=== PATIENT | female | born 1960 | race African-American/Black ===

== ENCOUNTER → 2021-08-08 14:34 | Outpatient (CLI) | payer MEDICARE, SELFPAY ==
[2021-08-08 15:50] LABS: Hematocrit 38.6 % (37-47); Hemoglobin 12.1 g/dL (12.0-15.0); Mean Corp Hgb Conc 31.3 g/dL (32-36); Mean Corpuscular Hgb 27.6 pg (27.0-32.0); Mean Corpuscular Volume 88.1 fL (81-99); Platelet Count 376 K/mm3 (150-450); RBC Distribution Width CV 14.1 % (11.6-14.6); RBC Distribution Width SD 45.6 fl (35.1-43.9); Red Blood Count 4.38 M/mm3 (4.2-5.4); White Blood Count 10.4 K/mm3 (4.4-11.0)
[2021-08-08 16:28] LABS: ALB/GLOB Ratio 0.7 RATIO (0.9-2.4); AST(SGOT) 20 U/L (15-37); Alanine Aminotransfer ALT/SGPT 22 U/L (13-56); Albumin, Serum 3.3 g/dL (3.2-5.0); Alkaline Phosphatase 110 U/L (45-117); Anion Gap 3 (5-15); BUN 11 mg/dL (7-18); BUN/Creat Ratio 17.1 RATIO (10-20); Calcium,Total 8.9 mg/dL (8.5-10.1); Chloride 111 mmol/L (98-107); Creatinine, Serum 0.64 mg/dL (0.55-1.02); EST Glomerular Filtration Rate 99 mL/min (>60); Est Glom Filt Rate - Afr Amer 120 mL/min (>60); Glucose 81 mg/dL (74-106); Potassium 3.6 mmol/L (3.5-5.1); Protein, Total 8.3 g/dL (6.4-8.2); Sodium Level 141 mmol/L (136-145)
[2021-08-08 17:33] LABS: Hepatitis B Surface Antigen Non-Reactive (Nonreactive)
[2021-08-09 10:02] LABS: Hepatitis C Antibody REACTIVE (Nonreactive)
== END ==
DX: M05.79 Rheumatoid arthritis with rheumatoid factor of multiple sites without organ or systems involvement (principal); Z02.89 Encounter for other administrative examinations; M17.0 Bilateral primary osteoarthritis of knee; Z79.899 Other long term (current) drug therapy
CPT/HCPCS: 36415; 80053; 85027; 86140; 86480; 86705; 86803; 87340

== ENCOUNTER → 2021-11-01 09:42 | Outpatient (CLI) | payer MEDICARE, SELFPAY ==
[2021-11-02 22:06] LABS: HCV Quant. RNA PCR HCV Not Detected IU/mL (.)
== END ==
DX: R76.8 Other specified abnormal immunological findings in serum (principal)
CPT/HCPCS: 36415; 87522

== ENCOUNTER 2025-03-31 14:55 | Inpatient (IN) | payer MEDICARE, SELFPAY ==
[2025-03-31] VITALS (9 sets, daily range): BP systolic 116–161; BP diastolic 62–96; PULSE 68–98; RESP 12–21; TEMP 36.4–36.9; O2SAT 94–100; BMI 40.1; BMI 43.2
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
--- NOTE | 2025-03-31 15:15 | RAD_ITS ---
PROCEDURE: ANKLE MIN 3 VIEWS 03/31/2025 REASON FOR EXAM: TRAUMA TECHNIQUE: 3 views of the right ankle COMPARISON: None. RAD/Ankle min 3 Views IMPRESSION: On lateral imaging, moderate inferior and posterior calcaneal spurring is seen. A comminuted fracture of the distal right fibula is seen, and at least a entertainment lawyer ior lip (and possibly also medial malleolar) fracture of the distal tibia is seen. Significant lateral dislocation of the t ibiotalar articulation is seen. Lucency of the plantar base of the cuboid bone is also noted, perhaps due to a fracture of uncertain age. Reading Location: [place] [id number]
[2025-03-31] MEDS: Propofol 200 MG/20 ML Vial IV BOLUS (16:06)
[2025-03-31] MEDS: Ondansetron 4 MG/2 ML Vial IV (16:07)
[2025-03-31] MEDS: Morphine 4 MG/ML Syringe IV (16:07)
--- NOTE | 2025-03-31 16:25 | RAD_ITS ---
PROCEDURE: ANKLE MIN 3 VIEWS 03/31/2025 REASON FOR EXAM: REDUCTION TECHNIQUE: 3 views of the right ankle COMPARISON: 03/31/2025 FINDINGS: Interval reduction previously noted moderately displaced distal tibia and fibular fractures. The ankle has been placed in a cast. There is improved and near anatomic alignment. However, there remains persistent mild widening of the ankle mortise. Moderate soft tissue swelling. No radiopaque foreign body. Small plantar calcaneal enthesophyte. Mild degenerative changes of the midfoot. RAD/Ankle min 3 Views IMPRESSION: See above. Reading Location: [place]
[2025-03-31 18:19] LABS: Absolute Lymphocyte Count 1.33 X10^3/uL (0.83-4.51); Absolute Neutrophil Count 6.3 X10^3/uL (2.0-7.7); Basophil# 0.01 X10^3/uL; Basophil% 0.1 % (0-1); Eosinophils% 1.2 % (0-5); Hemoglobin 11.4 g/dL (12.0-15.0); Lymphocyte # 1.33 X10^3/ul (0.83-4.51); Lymphocyte % 15.8 % (19-41); Mean Corp Hgb Conc 30.8 g/dL (32-36); Mean Corpuscular Hgb 27.7 pg (27.0-32.0); Mean Platelet Vol. 9.1 fl (6.2-12.0); Monocyte# 0.65 X10^3/uL; Monocyte% 7.7 % (0-10); NRBC Flagged by Analyzer 0 % (0-5); Neutrophil # 6.32 X10^3/uL (2.7-7.7); Neutrophil % 74.8 % (47-70); Platelet Count 289 K/mm3 (150-450); RBC Distribution Width CV 14.5 % (11.6-14.6); RBC Distribution Width SD 47.4 fl (35.1-43.9); Red Blood Count 4.11 M/mm3 (4.2-5.4); White Blood Count 8.4 K/mm3 (4.4-11.0)
[2025-03-31 18:38] LABS: ALB/GLOB Ratio 0.9 RATIO (0.9-2.4); AST(SGOT) 29 U/L (<=31); Alanine Aminotransfer ALT/SGPT 16 U/L (<=34); Albumin, Serum 3.5 g/dL (3.4-4.8); Alkaline Phosphatase 123 U/L (35-104); Anion Gap 12 (5-15); BUN 15 mg/dL (4-19); BUN/Creat Ratio 16.6 RATIO (10-20); Calcium,Total 9.3 mg/dL (7.6-11.0); Carbon Dioxide 19.9 mmol/L (21.0-32.0); Chloride 107 mmol/L (98-108); Creatinine, Serum 0.92 mg/dL (0.70-1.20); EST Glomerular Filtration Rate 69 (>60); Estimated Creatinine Clearance 85.16 ml/min (50-250); Globulin 3.8 g/dL (2.2-4.2); Glucose 88 mg/dL (70-99); Potassium 4.3 mmol/L (3.3-5.1); Protein, Total 7.3 g/dL (5.9-8.4); Sodium Level 139 mmol/L (133-145); Total Bilirubin 0.29 mg/dL (0.00-1.30)
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
--- NOTE | 2025-03-31 21:45 | CT_ITS ---
PROCEDURE: EXTREMITY LOWER WITHOUT CONTRA 03/31/2025 REASON FOR EXAM: RIGHT ANKLE FRACTURE TECHNIQUE: Axial CT images of the right ankle obtained without intravenous contrast. Coronal and Sagittal reconstruction series were provided. One or more dose reduction techniques were used (e.g., Automated exposure control, adjustment of the mA and/or kV according to patient size, use of iterative reconstruction technique RADIATION DOSE SUMMARY: CTDlvol: 15.4 mGy DLP: 496 mGycm COMPARISON: Right ankle radiographs 03/31/2025 FINDINGS: There are mildly displaced fractures of the medial, lateral, and posterior malleoli. There is widening of the medial ankle mortise suggestive of instability. Corticated calcification near the calcaneocuboid joint may represent sequela of remote injury or degenerative change. There is soft tissue swelling throughout the ankle. Achilles and calcaneal heel spurs. Mild degenerative changes throughout the midfoot. CT/Extremity Lower without Contra IMPRESSION: Mildly displaced trimalleolar fractures. Widening of the medial ankle mortise is concerning for instability. Recommend Orthopedic Surgery consultation if not already performed. Reading Location: [id number]
[2025-03-31] MEDS: Atorvastatin Calcium 40 MG Tablet PO (21:48)
[2025-03-31] MEDS: Senna/Docusate Sodium 1 Tablet 2 TABLET PO (21:49)
[2025-03-31] MEDS: buPROPion (SR) 100 MG TABLET.SA PO (21:49)
[2025-03-31] MEDS: Famotidine 20 MG Tablet PO (21:49)
[2025-03-31] MEDS: MELATONIN 3 MG TABLET PO (21:49)
[2025-03-31] MEDS: cycloBENZAPRine HCl 10 MG Tablet PO (21:49)
[2025-03-31] MEDS: Acetaminophen 325 MG Tablet 650 MG PO (22:29)
[2025-03-31] MEDS: 0.9% Normal Saline (1000mL) 1,000 ML 100 ML IV (23:40)
[2025-04-01] VITALS (16 sets, daily range): BP systolic 118–197; BP diastolic 55–96; PULSE 61–104; RESP 16–18; TEMP 36.1–36.7; O2SAT 88–98; BMI 43.2
[2025-04-01] MEDS: oxyCODONE 5 MG Tablet PO ×2 (00:20→06:49)
[2025-04-01] MEDS: Acetaminophen 325 MG Tablet 650 MG PO ×3 (04:30→13:48)
[2025-04-01] MEDS: 0.9% Saline Lock 10 ML Syringe IV (04:51)
[2025-04-01] MEDS: Morphine 4 MG/ML Syringe IV (04:51)
[2025-04-01] MEDS: Ondansetron 4 MG/2 ML Vial IV (04:51)
[2025-04-01 05:06] LABS: Absolute Lymphocyte Count 2.12 X10^3/uL (0.83-4.51); Absolute Neutrophil Count 7.6 X10^3/uL (2.0-7.7); Basophil# 0.02 X10^3/uL; Basophil% 0.2 % (0-1); Eosinophil# 0.25 X10^3/uL; Eosinophils% 2.3 % (0-5); Hematocrit 32.4 % (37-47); Hemoglobin 10.1 g/dL (12.0-15.0); Lymphocyte # 2.12 X10^3/ul (0.83-4.51); Lymphocyte % 19.3 % (19-41); Mean Corp Hgb Conc 31.2 g/dL (32-36); Mean Corpuscular Hgb 27.7 pg (27.0-32.0); Mean Platelet Vol. 9.4 fl (6.2-12.0); Monocyte# 0.93 X10^3/uL; Monocyte% 8.5 % (0-10); NRBC Flagged by Analyzer 0 % (0-5); Neutrophil # 7.63 X10^3/uL (2.7-7.7); Neutrophil % 69.3 % (47-70); Platelet Count 326 K/mm3 (150-450); RBC Distribution Width CV 14.4 % (11.6-14.6); RBC Distribution Width SD 46.5 fl (35.1-43.9); Red Blood Count 3.64 M/mm3 (4.2-5.4)
[2025-04-01 05:28] LABS: AST(SGOT) 24 U/L (<=31); Alanine Aminotransfer ALT/SGPT 20 U/L (<=34); Albumin, Serum 3.3 g/dL (3.4-4.8); Alkaline Phosphatase 114 U/L (35-104); Anion Gap 11 (5-15); BUN 16 mg/dL (4-19); BUN/Creat Ratio 20.7 RATIO (10-20); Calcium,Total 8.8 mg/dL (7.6-11.0); Carbon Dioxide 22.2 mmol/L (21.0-32.0); Chloride 109 mmol/L (98-108); Creatinine, Serum 0.79 mg/dL (0.70-1.20); EST Glomerular Filtration Rate 82 (>60); Estimated Creatinine Clearance 101.34 ml/min (50-250); Globulin 3.2 g/dL (2.2-4.2); Glucose 95 mg/dL (70-99); Potassium 3.6 mmol/L (3.3-5.1); Protein, Total 6.6 g/dL (5.9-8.4); Sodium Level 141 mmol/L (133-145); Total Bilirubin 0.36 mg/dL (0.00-1.30)
--- NOTE | 2025-04-01 05:55 | EKG12_ITS ---
Test Reason : AM EKG Blood Pressure : */* mmHG Vent. Rate : 89 BPM Atrial Rate : 89 BPM P-R Int : 176 ms QRS Dur : 76 ms QT Int : 388 ms P-R-T Axes : 74 -21 35 degrees QTcB Int : 472 ms Normal sinus rhythm Normal ECG No previous ECGs available Confirmed by FABIEN VILLASENOR, LUIS ([id number]), video editor ABILIO BARR ([id number]) on 04/04/2025 9:46:20 AM Referred By: CLAUDE Confirmed By: LUIS CONN MD
[2025-04-01] MEDS: Famotidine 20 MG Tablet PO (09:44)
[2025-04-01] MEDS: Metoprolol(XL)Succ 25 MG Tablet PO (09:44)
[2025-04-01] MEDS: predniSONE 5 MG Tablet PO (09:44)
[2025-04-01] MEDS: Folic Acid 1 MG Tablet PO (09:45)
[2025-04-01] MEDS: buPROPion (SR) 100 MG TABLET.SA PO (09:45)
--- NOTE | 2025-04-01 10:08 | CASEMGMT ---
BARTOLOME MELLO Assessment: Face to Face with pt for initial transition planning/care coordination assessment. BARTOLOME MELLO introduced self and role at [facility], pt voices understanding and consents to assessment. Pt is A&O x4 and answers all questions appropriately at this time. Pt lying in bed in no distress with at bedside who appears sleeping. Care providers, pharmacy, and demographics verified/updated. Admitting Dx: Fall, R ankle fx Strata Score: 1 PCP:[facility] Specialists:Carlos, rheum; Maury, cardio; Scarcelli, ortho Preferred Pharmacy: [facility] Insurance: [facility] Prescription Benefit: yes LNOK: Jesse Braden, Living Arrangements: Pt lives with , dtr and dtr's fiance in a two story home with 1 step to enter. Pt reports her bed and bath is on the 2nd floor which is 13 steps to go up. Pt reports prior to fall she was I in ADL/IADLs. Transportation: Pt drives self and denies concerns with transportation. DME:toilet riser, crutches, walker HHC/SNF: Pt has had HHC recently but is unsure of the name of the agency. Pt denies SNF stays. Pt states she has concerns returning home with her steps. She is aware that after surgery and therapy BARTOLOME henderson CM or REVA will speak with her regarding dc plan. Pt states no further concerns/needs. CM to follow. Advised pt to ask CM if any further questions/concerns/needs arise, voices understanding. Pt Goal: Home Plan: TBD pending surgery and therapy beatriz Chaves RN, CM
--- NOTE | 2025-04-01 14:56 | PCM.PROGNOTE ---
Subjective Subjective Patient seen and examined. Her was by her bedside. She complained of some pain in her right ankle. She sustained right fibular fracture. She is due for surgery by orthopedic surgery today. She has remained hemodynamically stable. Objective Data Objective Data Vital Signs: Vital Signs Temp Pulse Resp BP Pulse Ox O2 Del Method O2 Flow Rate 98.1 F 96 18 120/58 L 93 Room Air 0 04/01/25 10:00 04/01/25 10:00 04/01/25 10:00 04/01/25 10:00 04/01/25 11:06 04/01/25 13:55 03/31/25 16:28 FiO2 2 03/31/25 16:12 Oxygen Flow Rate (L/min) [4] 2 Oxygen Flow Rate (L/min) [3] 2 Oxygen Flow Rate (L/min) [2] 2 Oxygen Flow Rate (L/min) [1 ( 2 Initial Baseline)] Oxygen Flow Rate (L/min) 0 Oxygen Delivery Method [4] Nasal Cannula Oxygen Delivery Method [3] Nasal Cannula Oxygen Delivery Method [2] Nasal Cannula Oxygen Delivery Method [1 ( Nasal Cannula Initial Baseline)] Oxygen Delivery Method Room Air Weight: 292 lb 8.854 oz Body Mass Index (BMI) 43.2 Intake & Output: Intake and Output for Last 24 Hours 03/30/25 03/31/25 04/01/25 23:59 23:59 23:59 Intake Total 1620 / 1620 Output Total 650 / 650 Balance 970 / 970 Lab / Micro Data 04/01/25 03:50 04/01/25 03:50 Labs: Laboratory Results - last 24 hr 03/31/25 18:05: WBC 8.4, RBC 4.11 L, Hgb 11.4 L, Hct 37.0, MCV 90.0, MCH 27.7, MCHC 30.8 L, RDW Std Deviation 47.4 H, RDW Coeff of Jesica 14.5, Plt Count 289, MPV 9.1, Immature Gran % (Auto) 0.400, Neut % (Auto) 74.8 H, Lymph % (Auto) 15.8 L, [place] % (Auto) 7.7, Eos % (Auto) 1.2, Baso % (Auto) 0.1, Absolute Neuts (auto) 6.3, Absolute Lymphs (auto) 1.33, Nucleated RBC % 0, Sodium 139, Potassium 4.3, Chloride 107, Carbon Dioxide 19.9 L, Anion Gap 12, BUN 15, Creatinine 0.92, Estim Creat Clear Calc 85.16, Est GFR (MDRD) Non-Af 69, BUN/Creatinine Ratio 16.6, Glucose 88, Calcium 9.3, Total Bilirubin 0.29, AST 29, ALT 16, Alkaline Phosphatase 123 H, Total Protein 7.3, Albumin 3.5, Globulin 3.8, Albumin/Globulin Ratio 0.9 04/01/25 03:50: WBC 11.0, RBC 3.64 L, Hgb 10.1 L, Hct 32.4 L, MCV 89.0, MCH 27.7, MCHC 31.2 L, RDW Std Deviation 46.5 H, RDW Coeff of Jesica 14.4, Plt Count 326, MPV 9.4, Immature Gran % (Auto) 0.400, Neut % (Auto) 69.3, Lymph % (Auto) 19.3, [place] % (Auto) 8.5, Eos % (Auto) 2.3, Baso % (Auto) 0.2, Absolute Neuts (auto) 7.6, Absolute Lymphs (auto) 2.12, Nucleated RBC % 0, Sodium 141, Potassium 3.6, Chloride 109 H, Carbon Dioxide 22.2, Anion Gap 11, BUN 16, Creatinine 0.79, Estim Creat Clear Calc 101.34, Est GFR (MDRD) Non-Af 82, BUN/Creatinine Ratio 20.7 H, Glucose 95, Calcium 8.8, Total Bilirubin 0.36, AST 24, ALT 20, Alkaline Phosphatase 114 H, Total Protein 6.6, Albumin 3.3 L, Globulin 3.2, Albumin/Globulin Ratio 1.0 Radiography Diagnostic Testing: Radiology Impression Ankle X-Ray 03/31/25 15:15 IMPRESSION: On lateral imaging, moderate inferior and posterior calcaneal spurring is seen. A comminuted fracture of the distal right fibula is seen, and at least a posterior lip (and possibly also medial malleolar) fracture of the distal tibia is seen. Significant lateral dislocation of the tibiotalar articulation is seen. Lucency of the plantar base of the cuboid bone is also noted, perhaps due to a fracture of uncertain age. Reading Location: [facility] Ankle X-Ray 03/31/25 16:25 IMPRESSION: See above. [facility] 03/31/25 21:45 IMPRESSION: Mildly displaced trimalleolar fractures. Widening of the medial ankle mortise is concerning for instability. Recommend Orthopedic Surgery consultation if not already performed. Reading Location: [facility] Physical Exam Const alert, oriented x3, no apparent distress and well nourished Constitutional Narrative: class III obesity General Appearance: cooperative and well developed HEENT normocephalic, head/scalp atraumatic, moist oral mucous membranes, oropharynx normal and gingiva normal Eyes PERRL and EOMs intact bilaterally Neck no lymphadenopathy and supple Lymph Lymphatic: no lymphadenopathy noted and no lymphedema noted Resp normal respiratory effort, normal air movement and clear to auscultation bilaterally Cardio regular rate, regular rhythm, S1 normal heart sound and S2 normal heart sound GI normal to inspection, nondistended, normoactive bowel sounds, soft to palpation, non-tender and non-distended Extremity Extremity Narrative: RLE in cast General Extremity: no tenderness to palpation of joints or extremities Skin General Skin Exam: no breakdown Neuro CN's II-XII intact bilaterally and no focal motor deficits Motor Exam: general weakness Psych thought process normal, cooperative and affect normal Appearance: appropriate Assessment & Plan Assessment/Plan (1) Ankle fracture, bimalleolar, closed: (2) Fall: PLAN: Plan #Right distal tibial and fibular fracture due to mechanical fall Orthopedic surgery on board. For surgery later today. On p.o. Tylenol, p.o. oxycodone and IV morphine as needed for pain. For surgery later today by orthopedic surgery. #Rheumatoid arthritis: On methotrexate injections monthly. Was on folic acid. On low-dose steroids. #Anxiety and depression: Bupropion #Hypertension: On metoprolol. IV hydralazine. #Hyperlipidemia: On statin #GERD: famotidine #Class III obesity: BMI is 43.2. Complicates acute care, expected recovery and prognosis. DVT prophylaxis: SCDs. Charges/Coding Visit Charges Inpatient E&M: 53887 Subs Hosp L2
[2025-04-01] MEDS: Lactated Ringers 1,000 ML 15 ML IV (16:27)
--- NOTE | 2025-04-01 16:45 | PRE.ANES_ITS ---
ASA Classification* ASA Classification ASA Classification: 3 and E Assessment & Plan Anesthesia* Anesthesia Assessment Anesthesia Assessment: Discussed sedation and/or anesthesia options, risks, benefits, and alternatives with patient/parents/legal guardian/POA. Questions invited. The patient/parents/legal guardian/POA seems to understand and agrees to proceed with anesthesia plan. Reviewed the physical assessment, medical history, allergy history and patient home medications list prior to surgery/procedure/anesthetic and documented any changes. Performed airway and anesthesia risk assessments. Anesthesia Type Anesthesia Type: General Anesthesia Focused Assessment* Temperature: 97.5 F Pulse Rate: 61 Blood Pressure: 118/55 Respiratory Rate: 18 Pulse Ox: 94 Oxygen Flow Rate (L/min): 0 Airway Assessment Mouth opens: >3 cm Mallampati Score: II Focused Labs Anesthesia Preop lab: CBC WBC 11.0 K/mm3 (4.4-11.0) 04/01/25 03:50 04/01/25 RBC 3.64 M/mm3 (4.2-5.4) L 04/01/25 03:50 04/01/25 Hgb 10.1 g/dL (12.0-15.0) L 04/01/25 03:50 5 Hct 32.4 % (37-47) L 04/01/25 03:50 04/01/25 Plt Count 326 K/mm3 (150-450) 04/01/25 03:50 04/01/25 CHEMISTRY Potassium 3.6 mmol/L (3.3-5.1) 04/01/25 03:50 04/01/25 Sodium 141 mmol/L (133-145) 04/01/25 03:50 04/01/25 BUN 16 mg/dL (4-19) 04/01/25 03:50 04/01/25 Creatinine 0.79 mg/dL (0.70-1.20) 04/01/25 03:50 04/01/25 Glucose 95 mg/dL (70-99) 04/01/25 03:50 04/01/25 COAG Pre-Assessment Diagnosis/Proposed Procedure Planned Operative Procedure(s): orif of ankle fx Anesthesia History 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 When Was Last Pacemaker Check QUESTION #4 FULL TEXT: You/Your Family Experience fever (hyperthermia) with Anesthesia Last Oral Intake Last Oral intake: Last Oral Intake NPO since 00:01 04/01/25 15:04 Meds taken in AM with sips of Yes 04/01/25 15:04 water? Meds patient instructed to lopressor, tylenol, folic 04/01/25 15:04 take am of surgery acid, PONV PONV - cad application support specialist: PONV - cad application support specialist Female HX of Motion Sickness HX of N/V After Surgery Non-Smoker Duration of Surgery greater than 60 minutes Number of Risk Factors PONV Score Height & Weight Height & Weight: Anesthesia: Height & Weight Height 5 ft 9 in 04/01/25 15:04 Weight: 132.7 kg 04/01/25 15:04 Body Mass Index (BMI) 43.2 04/01/25 15:04 Respiratory Assessment Respiratory Assessment - cad application support specialist: Respiratory Tract Infection Hx - cad application support specialist Hx Respiratory Tract Infection No 04/01/25 01:24 STOP Sleep Apnea STOP Sleep Apnea - cad application support specialist: STOP Sleep Apnea - cad application support specialist Hx Hypertension Yes 03/31/25 20:49 Hx Sleep Apnea No 03/31/25 20:49 CPAP BIPAP Do you snore loudly (louder No 03/31/25 20:49 than talking or can be heard Do you often feel tired/ No 03/31/25 20:49 fatigued/ sleepy during daytime? Has anyone observed you stop No 03/31/25 20:49 breathing during sleep? STOP Results Negative 03/31/25 20:49 QUESTION #5 FULL TEXT : Do you snore loudly (louder than talking or can be heard through closed doors)? 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 Specify any problems Hx of Preganancy in last 3 No 03/31/25 20:49 Months Nurse Filling Out Transfusion AREAD 03/31/25 20:49 & Questions: Date: 03/31/25 03/31/25 20:49 Time: 20:54 03/31/25 20:49 Patient unable to answer at this time (ie. confused, unrespo /Reproduction History /Reproductive History - cad application support specialist: /Reproductive Hx- cad application support specialist Hx Now No 04/01/25 01:24 Gestational Age (in weeks): EDC: Hx Hx Para Hx Section SAB No 04/01/25 01:24 Active Medications Active Medications: Current Medications Generic Name Dose Route Start Last Admin Trade Name Freq PRN Reason Stop Dose Admin Acetaminophen 650 mg 03/31/25 20:49 04/01/25 13:48 Acetaminophen 325 Mg Tablet PO 650 mg Q4H PRN PRN Administration Fever, pain 1-10/10 Al Hydroxide/Mg Hydroxide 30 ml 03/31/25 20:49 Mag Hydrox/Al Hydrox/Simeth 30 Ml Udc PO Q6H PRN PRN Gastric Burning Albuterol Sulfate 2.5 mg 03/31/25 20:49 Albuterol 2.5 Mg/3 Ml Vial.Neb. INHALATION Q2H PRN PRN Dyspnea, wheezing Atorvastatin Calcium 40 mg 03/31/25 22:00 03/31/25 21:48 Atorvastatin Calcium 40 Mg Tablet PO 40 mg QHS BERNIE Administration Bupropion HCl 100 mg 03/31/25 22:00 04/01/25 09:45 Bupropion (Sr) 100 Mg Tablet.Sa PO 100 mg BID BERNIE Administration Cyclobenzaprine HCl 10 mg 03/31/25 22:00 03/31/25 21:49 Cyclobenzaprine Hcl 10 Mg Tablet PO 10 mg QHS BERNIE Administration Famotidine 20 mg 03/31/25 22:00 04/01/25 09:44 Famotidine 20 Mg Tablet PO 20 mg BID BERNIE Administration Folic Acid 1 mg 04/01/25 08:00 04/01/25 09:45 Folic Acid 1 Mg Tablet PO 1 mg BREAKFAST BERNIE Administration Guaifenesin 20 ml 03/31/25 20:49 Guaifenesin 10 Ml Udc (200mg/10ml) PO Q4H PRN PRN COUGH Hydralazine HCl 10 mg 03/31/25 20:49 Hydralazine 20 Mg/Ml Vial IV Q4H PRN PRN SBP > 160 Protocol Sodium Chloride 250 mls @ 15 mls/hr 03/31/25 21:01 IV .[id number] PRN Additional IVPB Infusion Sodium Chloride 250 mls @ 15 mls/hr 03/31/25 21:01 IV .[id number] PRN Saline Flush Lactated Ringer's 1,000 mls @ 15 mls/hr 04/01/25 16:30 04/01/25 16:27 IV 15 mls/hr .Q48H BERNIE Administration Melatonin 3 mg 03/31/25 22:00 03/31/25 21:49 Melatonin 3 Mg Tablet PO 3 mg QHS BERNIE Administration Metoprolol Succinate 25 mg 04/01/25 10:00 04/01/25 09:44 Metoprolol(Xl)Succ 25 Mg Tablet PO 25 mg DAILY BERNIE Administration Protocol Morphine Sulfate 2 - 4 mg 03/31/25 20:49 04/01/25 04:51 Morphine 4 Mg/Ml Syringe IV 4 mg Q2H PRN PRN Administration MODSEVPAIN Ondansetron HCl 4 mg 03/31/25 20:49 04/01/25 04:51 Ondansetron 4 Mg/2 Ml Vial IV 4 mg Q8H PRN PRN Administration NAUSEA/VOMITING Oxycodone HCl 5 - 10 mg 03/31/25 20:49 04/01/25 06:49 Oxycodone 5 Mg Tablet PO 10 mg Q4H PRN PRN Administration MODSEVPAIN Prednisone 5 mg 04/01/25 08:00 04/01/25 09:44 Prednisone 5 Mg Tablet PO 5 mg DAILY@0800 BERNIE Administration Prochlorperazine Edisylate 5 mg 03/31/25 20:49 Prochlorperazine 10 Mg/2 Ml Vial IV Q4H PRN PRN Breakthrough nausea/vomiting Senna/Docusate Sodium 2 tablet 03/31/25 22:00 04/01/25 10:12 Senna/Docusate Sodium 1 Tablet PO Not Given BID BERNIE Sodium Chloride 10 - 40 ml 03/31/25 21:01 04/01/25 04:51 0.9% Saline Lock 10 Ml Syringe IV 30 ml UD PRN Administration SALINE FLUSH PFSH Medical History Anxiety and depression GERD (gastroesophageal reflux disease) Rheumatoid arthritis Morbid obesity HLD (hyperlipidemia) HTN (hypertension) Home Medications ?Medication ?Instructions ?Recorded ?Last Taken ?Type atorvastatin 40 mg tablet 40 mg PO QHS cholesterol 03/30/25 History bupropion HCl 100 mg tablet,12 hr 100 mg PO BID 03/31/25 History sustained-release calcium 600 mg (as 1 cap PO DAILY 03/31/2503/17 History carbonate)-vitamin D3 5 mcg (200 unit) capsule (Calcium 600 + D(3)) certolizumab pegol 400 mg/2 mL 400 mg subcut .[id number] 03/31/25 Unknown History (200 mg/mL x2) subcutaneous syringe kit (Cimzia) cholecalciferol (vitamin D3) 25 25 mcg PO DAILY 03/31/25 History mcg (1,000 unit) capsule cyclobenzaprine 10 mg tablet 10 mg PO QHS 03/31/25 History famotidine 20 mg tablet 20 mg PO BID 03/31/25 Unknow n History folic acid 1 mg tablet 1 mg PO DAILY 03/31/2503/31 History melatonin 3 mg capsule 3 mg PO DAILY 03/31/2503/30 History methotrexate sodium 2.5 mg tablet 20 mg PO QWEEK 03/31 Unknown History metoprolol succinate 25 mg 25 mg PO DAILY 03/31/25 History tablet,extended release 24 hr prednisone 5 mg tablet 5 mg PO DAILY 03/31/25 Unkno wn History Allergy/AdvReac Type Severity Reaction Status Date / Time No Known Allergies Allergy Verified 03/31/25 14:56 Family History Mother CVA (cerebral vascular accident) Hypertension Father Cancer Surgical History History of left knee replacement Social History household members: spouse Smoking Status: Never smoker alcohol intake: never substance use type: does not use Review of Systems (Anesthesia) ROS Narrative System reviewed and no additional complaints, except as documented.
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
[2025-04-01] MEDS: Cefazolin 3 GM in 0.9% Normal Saline (100mL Bag) 100 ML IV (20:22)
--- NOTE | 2025-04-01 20:30 | RAD_ITS ---
PROCEDURE: ANKLE MIN 3 VIEWS 04/01/2025 REASON FOR EXAM: ORIF ANKLE TECHNIQUE: Fluoroscopy right ankle with 4 spot images FINDINGS: Fluoroscopy time 37.3 seconds Cumulative dose 1.67 mGy Lateral plate and screws distal fibula appear intact and anatomic. 2 cannulated screws medial malleolus appear intact and anatomic. RAD/Ankle min 3 Views IMPRESSION: Fluoroscopy as above. Reading Location: [id number]
--- NOTE | 2025-04-01 21:43 | PCM.OPRPT ---
Operative Report (Standard) Operative Information Date of Procedure: 04/01/25 Pre-Operative Diagnosis: Right ankle trimalleolar ankle fracture Post-Operative Diagnosis: Right ankle trimalleolar ankle fracture Surgery/Procedure Performed: Open reduction internal fixation right trimalleolar ankle fracture medial and lateral malleolus. Stress exam under fluoroscopy right ankle home health clinician: Yes Slide Fasteners Inspector: Herbert Pearl Tasks completed by public services assistant: Opening, Closing, Dissecting tissue, Implanting device, Retracting and Other (Fracture reduction and maintenance of reduction) Additional assistant gm of content & delivery?: No Type of Anesthesia: General RN Documented Start/Stop Times: Operation Date: 04/01/25 17:15 Case Time Into Pre-Op 04/01/25 16:19 Anesthesia Start 04/01/25 20:00 Into Room 04/01/25 20:00 Procedure Start 04/01/25 20:35 Procedure End 04/01/25 21:55 Anesthesia End 04/01/25 22:10 Out of Room 04/01/25 22:10 Into Recovery 04/01/25 22:15 Out of Recovery 04/01/25 23:07 Procedure Start Time: 20:35 Procedure Stop Time: 21:55 Select all DRAINS/GRAFTS/IMPLANTS that apply: Prosthetic device Prosthetic device details: Arthrex 5 hole anatomic distal fibular plate. 2 4.0mm cannulated 50 mm screws medially Special Medications: 3 g Ancef Estimated Blood Loss: 100 mL Fluids Replaced: 1000 mL crystalloid Specimen collected: No Description of surgery: On the day of the procedure patient was seen and evaluated in the preoperative area as noted in her consultation. Right lower extremity was marked in the preoperative area patient was taken back the operating room in stable condition and transferred to table in supine position. Once patient was in supine position anesthesia some neutral C-spine and airway and remained controlled throughout the remainder of the procedure. Once patient was prepped anesthetized all bony prominences identified well-padded bump was placed underneath the right hip. Blankets were placed underneath the right leg. Tourniquet was placed in the right thigh. Splint was taken down and skin was examined. Patient did have skin wrinkles with lateral swelling. No blisters. Leg was prepped in a sterile fashion while surgeon scrubbed. Upon reentering the room the right lower extremity was draped in a standard orthopedic fashion. Timeout was called everyone agreed upon the side, the site, the procedure to be performed, patient's identity and antibiotics given. At this time the leg was exsanguinated using Esmarch bandage tourniquet was placed up to 250 mmHg. Lateral incision was made first. Using made skin incision became abundantly clear we had a venous tourniquet. Based on this tourniquet was let down and proceed with the procedure. Bovie was used to maintain hemostasis. We carefully dissected down to the fracture. Once identified the fracture the wound was copiously irrigated out with normal saline. Pointed reduction clamps were used to reduce the fracture with the help of my assistant gm of content & delivery who pulled traction and rotation on the ankle. Once this was provisionally fixed using a clamp live x-ray was used to verify fracture reduction. 2 lag screws were placed in the leg screw by technique fashion 1 cm apart using 3.5 mm cortical screws. Once this was completed a 5 hole plate was selected and live x-ray was used to verify plate placement. The screw was placed provisionally in the slotted screw screw hole proximally and provisionally fixed in place. Once you are happy with the plate placement 1 additional cortical screw was used to compress the plate down to the plate distally and 4 locking screws were used in the distal anatomic portion of the plate. 2 additional 3.5 mm cortical screws were placed proximally. Lab x-rays to verify plate placement and fracture reduction. Once this was completed our attention was directed medially. Medial skin incision was taken down through skin Bovie cautery was used to help maintain hemostasis superficially. We bluntly dissected down to the fracture. Once identified the fracture we cleaned out the fracture site. Fracture site was yimi irrigate out normal saline. Point reduction clamps were used to reduce the fracture. Using fluoroscopy for guidance we placed 2 K wires distal to proximal across the fracture site. Once we are happy with the placement of these a 50 mm partially-threaded screw and a 48 mm partially-threaded screw were selected. The near cortex was drilled and the cancellous screws were tightened into place. Live fluoroscopy was used to verify they were adequately tightened down to the cortex. K wires were removed. At this point attention was directed towards syndesmosis. We able to directly visualize the syndesmosis through the lateral incision appeared to be intact. Using live fluoroscopy the mortise x-ray was obtained. Once he obtained the initial mortise x-ray we then placed external rotation on the ankle and noted that the mortise did not widen and the talus remained in a stable position under the tibia. Based on this we do not feel patient required further syndesmosis fixation. The wound was copiously irrigated out with normal saline. Deep fascia layers were closed with #1 Vicryl. Skin was closed with 2-0 Vicryl and final skin closure was done with 3-0 nylon sutures. Xeroform dressing was placed. Well-padded sterile compressive dressing was placed. Well-padded splint was placed with the foot in neutral position. Patient was then awakened by anesthesia and transferred to PACU for recovery in stable condition Postop plan: Patient will have the splint removed in 2 weeks and be transition to a boot. She will begin range of motion and stability exercises with physical therapy. Patient will take baby aspirin twice a day for 4 weeks to prevent DVTs. Nonweightbearing for total of 6 weeks with progressive weightbearing based on radiographic and clinical healing after 6 weeks Surgical Findings: Stay well reduced fracture. On stress examination of syndesmosis syndesmosis did not significantly widened and ankle remained stable. Complications Complications: No Admit VTE Documentation VTE Present on Admission: No VTE Mechan Device Prophylaxis: SCD's and Thigh High NESS Hose VTE Pharm Prophylaxis ordered?: Yes
--- NOTE | 2025-04-01 22:24 | PCM.POST.ANE ---
Anesthesia: Postop Eval I Current Vital Signs Temperature: 97.2 F Pulse Rate: 101 Blood Pressure: 197/84 Respiratory Rate: 16 Pulse Ox: 98 Assessment Airway patent: Yes Spontaneous unlabored respirations: Yes nausea: No Vomiting: No Anesthesia Complication: No Fluid Hydration Crystalloid volume administer (ml): 1,000 Total IV fluid infused: 1,000 Progress Note Anesthesia document: Postop Eval 1 completed: Yes
--- NOTE | 2025-04-01 22:25 | PCM.POSTANE2 ---
Anesthesia Postop Eval I Sum Postop Eval Completion status Anesthesia document: Postop Eval 1 completed: Yes Anesthesia Postop Eval I Summary Anesthesia Postop Eval I Summary: Anesthesia Postop Eval I: Assessment Summary Airway patent Yes 04/01/25 22:24 Spontaneous unlabored Yes 04/01/25 22:24 respirations Mental status nausea No 04/01/25 22:24 Vomiting No 04/01/25 22:24 Anesthesia Postop Eval I: Fluid Summary Crystalloid volume administer 1,000 04/01/25 22:24 (ml) Colloids volume administered ( ml) Blood Product volume administered (ml) Total IV fluid infused 1,000 04/01/25 22:24 Anesthesia Postop Eval I: Summary Notes Anesthesia Complication No 04/01/25 22:24 Anesthesia Complication Comment: Post-operative progress note Anesthesia: Postop Eval II Evaluation Mental status: Awake Pain Level: 5 nausea: No Vomiting: No
[2025-04-02] VITALS (9 sets, daily range): BP systolic 119–151; BP diastolic 51–93; PULSE 87–109; RESP 14–18; TEMP 36.3–37.6; O2SAT 92–97; BMI 44.7
[2025-04-02] MEDS: Morphine 4 MG/ML Syringe IV ×4 (01:14→09:30)
--- NOTE | 2025-04-02 03:29 | NURSING ---
This RN taking over care at this time
[2025-04-02] MEDS: Ondansetron 4 MG/2 ML Vial IV (03:39)
[2025-04-02] MEDS: 0.9% Saline Lock 10 ML Syringe IV ×4 (03:39→20:47)
[2025-04-02 06:04] LABS: Absolute Lymphocyte Count 1.52 X10^3/uL (0.83-4.51); Absolute Neutrophil Count 9.5 X10^3/uL (2.0-7.7); Basophil# 0.03 X10^3/uL; Basophil% 0.2 % (0-1); Eosinophil# 0.22 X10^3/uL; Eosinophils% 1.8 % (0-5); Hemoglobin 10.5 g/dL (12.0-15.0); Lymphocyte # 1.52 X10^3/ul (0.83-4.51); Lymphocyte % 12.2 % (19-41); Mean Corpuscular Hgb 27.7 pg (27.0-32.0); Mean Corpuscular Volume 92.3 fL (81-99); Mean Platelet Vol. 9.4 fl (6.2-12.0); Monocyte# 1.17 X10^3/uL; Monocyte% 9.4 % (0-10); NRBC Flagged by Analyzer 0 % (0-5); Neutrophil # 9.47 X10^3/uL (2.7-7.7); Neutrophil % 76.1 % (47-70); Platelet Count 343 K/mm3 (150-450); RBC Distribution Width CV 14.6 % (11.6-14.6); Red Blood Count 3.79 M/mm3 (4.2-5.4); White Blood Count 12.5 K/mm3 (4.4-11.0)
[2025-04-02 06:38] LABS: Anion Gap 10 (5-15); BUN 11 mg/dL (4-19); BUN/Creat Ratio 14.5 RATIO (10-20); Calcium,Total 8.7 mg/dL (7.6-11.0); Chloride 106 mmol/L (98-108); Creatinine, Serum 0.77 mg/dL (0.70-1.20); EST Glomerular Filtration Rate 84 (>60); Estimated Creatinine Clearance 103.44 ml/min (50-250); Glucose 116 mg/dL (70-99); Sodium Level 142 mmol/L (133-145)
[2025-04-02] MEDS: Metoprolol(XL)Succ 25 MG Tablet PO (07:57)
[2025-04-02] MEDS: Acetaminophen 325 MG Tablet 650 MG PO ×2 (07:58→19:50)
[2025-04-02] MEDS: oxyCODONE 5 MG Tablet PO ×3 (07:58→20:47)
[2025-04-02] MEDS: Famotidine 20 MG Tablet PO ×2 (07:58→20:49)
[2025-04-02] MEDS: predniSONE 5 MG Tablet PO (07:58)
[2025-04-02] MEDS: Aspirin 81 MG TAB.CHEW PO ×2 (07:58→16:32)
[2025-04-02] MEDS: Folic Acid 1 MG Tablet PO (07:58)
[2025-04-02] MEDS: buPROPion (SR) 100 MG TABLET.SA PO ×2 (07:59→20:49)
[2025-04-02] MEDS: Senna/Docusate Sodium 1 Tablet 2 TABLET PO ×2 (07:59→20:49)
--- NOTE | 2025-04-02 10:32 | PCM.PROGNOTE ---
Subjective Subjective Patient seen and examined. She is postop day 1 from right lower extremity open reduction internal fixation of the distal tibial and fibula fracture. She complains of pain. She does have a mild fever today at 99.5 Fahrenheit. Heart rate is also a little elevated at 104. Review of systems otherwise negative. Objective Data Objective Data Vital Signs: Vital Signs Temp Pulse Resp BP Pulse Ox O2 Del Method O2 Flow Rate 99.5 F H 104 H 17 141/63 H 94 Room Air 1 04/02/25 08:00 04/02/25 08:00 04/02/25 08:00 04/02/25 08:00 04/02/25 08:00 04/02/25 08:00 04/01/25 23:59 FiO2 2 03/31/25 16:12 Oxygen Flow Rate (L/min) [4] 2 Oxygen Flow Rate (L/min) [3] 2 Oxygen Flow Rate (L/min) [2] 2 Oxygen Flow Rate (L/min) [1 ( 2 Initial Baseline)] Oxygen Flow Rate (L/min) 1 Oxygen Delivery Method [4] Nasal Cannula Oxygen Delivery Method [3] Nasal Cannula Oxygen Delivery Method [2] Nasal Cannula Oxygen Delivery Method [1 ( Nasal Cannula Initial Baseline)] Oxygen Delivery Method Room Air Weight: 303 lb 2.17 oz Body Mass Index (BMI) 44.7 Intake & Output: Intake and Output for Last 24 Hours 03/31/25 04/01/25 04/02/25 23:59 23:59 23:59 Intake Total 1735 / 1735 173.25 / 173.25 Output Total 1000 / 1350 350 / 350 Balance 735 / 385 -176.75 / -176.75 Lab / Micro Data 04/02/25 05:10 04/02/25 05:10 Labs: Laboratory Results - last 24 hr 04/02/25 05:10: WBC 12.5 H, RBC 3.79 L, Hgb 10.5 L, Hct 35.0 L, MCV 92.3, MCH 27.7, MCHC 30.0 L, RDW Std Deviation 49.0 H, RDW Coeff of Jesica 14.6, Plt Count 343, MPV 9.4, Immature Gran % (Auto) 0.300, Neut % (Auto) 76.1 H, Lymph % (Auto) 12.2 L, [place] % (Auto) 9.4, Eos % (Auto) 1.8, Baso % (Auto) 0.2, Absolute Neuts (auto) 9.5 H, Absolute Lymphs (auto) 1.52, Nucleated RBC % 0, Sodium 142, Potassium 4.0, Chloride 106, Carbon Dioxide 26.0, Anion Gap 10, BUN 11, Creatinine 0.77, Estim Creat Clear Calc 103.44, Est GFR (MDRD) Non-Af 84, BUN/Creatinine Ratio 14.5, Glucose 116 H, Calcium 8.7 Radiography Diagnostic Testing: Radiology Impression Ankle X-Ray 04/01/25 20:30 IMPRESSION: Fluoroscopy as above. Reading Location: [facility] Physical Exam Const alert, oriented x3, no apparent distress and well nourished Constitutional Narrative: class III obesity General Appearance: cooperative and well developed HEENT normocephalic, head/scalp atraumatic, moist oral mucous membranes, oropharynx normal and gingiva normal Eyes PERRL and EOMs intact bilaterally Neck no lymphadenopathy and supple Lymph Lymphatic: no lymphadenopathy noted and no lymphedema noted Resp normal respiratory effort, normal air movement and clear to auscultation bilaterally Cardio regular rhythm, S1 normal heart sound and S2 normal heart sound Cardio Narrative: tachycardia GI normal to inspection, nondistended, normoactive bowel sounds, soft to palpation, non-tender and non-distended Extremity Extremity Narrative: RLE in cast General Extremity: no tenderness to palpation of joints or extremities Skin General Skin Exam: no breakdown Neuro CN's II-XII intact bilaterally and no focal motor deficits Motor Exam: general weakness Psych thought process normal, cooperative and affect normal Appearance: appropriate Assessment & Plan Assessment/Plan (1) Ankle fracture, bimalleolar, closed: (2) Fall: PLAN: Plan #Right distal tibial and fibular fracture due to mechanical fall Orthopedic surgery on board. s/p ORIF by orthopedics. Today is POD 1 On p.o. Tylenol, p.o. oxycodone and IV morphine as needed for pain. #Rheumatoid arthritis: On methotrexate injections monthly. Was on folic acid. On low-dose steroids. #Anxiety and depression: Bupropion #Hypertension: On metoprolol. IV hydralazine. #Hyperlipidemia: On statin #GERD: famotidine #Class III obesity: BMI is 43.2. Complicates acute care, expected recovery and prognosis. DVT prophylaxis:will start on eliquis 2.5mg bid Disposition: Disposition will depend on how she does with therapy to see if she can go home possibly with home health but she will need short-term rehab. Charges/Coding Visit Charges Inpatient E&M: 79782 Subs Hosp L2
--- NOTE | 2025-04-02 10:56 | CASEMGMT ---
Noted pt refused therapy today d/t pain and dizziness.
--- NOTE | 2025-04-02 11:37 | CASEMGMT ---
Social Work- SW met with pt to discuss discharge planning. Pt reports that she cannot safely return home due to the 13 steps in the home. Pt reports that her daughter does not want pt to go to SNF, however, pt feels it is the best placement. SW encouraged pt that she is ultimately the decision-maker and offered to assist with conversation with dtr to provide education if desired. SW provided education on placement process. Pt reports that she and dtr will be moving to [place] at the end of summer, as dtr received a position at [employer] and pt feels discharge to SNF will provide the best opportunity to be able to handle that move. Pt will review list with dtr; if any assistance is needed, pt will reach out to . Pt reports that her spouse of 40+ years will also be in this afternoon to review list with her. Pt shared that she has lived with dtr 8 years and spoke extensively about the strong relationship they have. Pt also reported a son out of state and a son who was a security police officer shot in the line of duty 13 years ago. Pt spoke about mild depression following her knee surgery earlier this year and the frustrations regarding not healing as quickly as she anticipated. Pt reports that she is in a healthy mental space currently and reports no feelings of depression regarding inability to return home at this time. SW will remain to follow for SNF choices. SABRINA Alcantara
--- NOTE | 2025-04-02 12:12 | PN.ORTHO_ITS ---
Subjective Subjective Patient is stable with no acute events overnight. Plan for swing bed or some rehab upon discharge. Patient remains comfortable. Continue to ice and elevate. Objective Data Objective Data Vital Signs: Vital Signs Temp Pulse Resp BP Pulse Ox O2 Del Method O2 Flow Rate 99.5 F H 104 H 17 141/63 H 94 Room Air 1 04/02/25 08:00 04/02/25 08:00 04/02/25 08:00 04/02/25 08:00 04/02/25 08:00 04/02/25 08:00 04/01/25 23:59 FiO2 2 03/31/25 16:12 Oxygen Flow Rate (L/min) [4] 2 Oxygen Flow Rate (L/min) [3] 2 Oxygen Flow Rate (L/min) [2] 2 Oxygen Flow Rate (L/min) [1 ( 2 Initial Baseline)] Oxygen Flow Rate (L/min) 1 Oxygen Delivery Method [4] Nasal Cannula Oxygen Delivery Method [3] Nasal Cannula Oxygen Delivery Method [2] Nasal Cannula Oxygen Delivery Method [1 ( Nasal Cannula Initial Baseline)] Oxygen Delivery Method Room Air Weight: 303 lb 2.17 oz Body Mass Index (BMI) 44.7 Intake & Output: Intake and Output for Last 24 Hours 03/31/25 04/01/25 04/02/25 23:59 23:59 23:59 Intake Total 1735 / 1735 173.25 / 173.25 Output Total 1000 / 1350 350 / 350 Balance 735 / 385 -176.75 / -176.75 Lab / Micro Data Attestation: I reviewed the patient's lab results. 04/02/25 05:10 04/02/25 05:10 Labs: Laboratory Results - last 24 hr 04/02/25 05:10: WBC 12.5 H, RBC 3.79 L, Hgb 10.5 L, Hct 35.0 L, MCV 92.3, MCH 27.7, MCHC 30.0 L, RDW Std Deviation 49.0 H, RDW Coeff of Jesica 14.6, Plt Count 343, MPV 9.4, Immature Gran % (Auto) 0.300, Neut % (Auto) 76.1 H, Lymph % (Auto) 12.2 L, [place] % (Auto) 9.4, Eos % (Auto) 1.8, Baso % (Auto) 0.2, Absolute Neuts (auto) 9.5 H, Absolute Lymphs (auto) 1.52, Nucleated RBC % 0, Sodium 142, Potassium 4.0, Chloride 106, Carbon Dioxide 26.0, Anion Gap 10, BUN 11, Creatinine 0.77, Estim Creat Clear Calc 103.44, Est GFR (MDRD) Non-Af 84, BUN/Creatinine Ratio 14.5, Glucose 116 H, Calcium 8.7 Radiography Diagnostic Testing: Radiology Impression Ankle X-Ray 04/01/25 20:30 IMPRESSION: Fluoroscopy as above. Reading Location: [facility] Physical Exam Narrative Right lower extremity: Splint is in place. Splint is clean and dry. Wiggles all toes. Warm digits with brisk cap refill. Sensations intact light touch supers peroneal, deep peroneal and tibial nerve distributions which can be tested with a splint on. Const alert, oriented x3 and no apparent distress Assessment & Plan Assessment/Plan (1) Trimalleolar fracture of right ankle: PLAN: Postop day 1 open reduction term fixation right trimalar ankle fracture medial 1. DVT prophylaxis: Patient was placed on Eliquis 2.5 mg twice daily. Upon discharge to be transition to baby aspirin twice a day. Will leave discretion to primary service upon discharge 2. Pain control: Per primary service currently on Tylenol 3. Therapy: 6-week nonweightbearing right lower extremity. Activity as tolerated would benefit from use of a walker. Therapy to ensure appropriate use and mobility. 4. Elevate right lower extremity above level of heart and ice consistently 5. Disposition: Patient disposition will be dependent on how she is able to therapy and stabilization. Based on age and weightbearing restrictions patient may benefit from inpatient rehabilitation or alf depending on PT OT evaluations. Patient should follow-up in orthopedic office in 2 weeks for x- rays and removal of splint as well as wound examination. DVT prophylaxis as recommended above will defer to primary service for definitive discharge medication, minimum DVT prophylaxis should be 4 weeks of baby aspirin twice a day.
[2025-04-02] MEDS: APIXABAN 2.5 MG TABLET (WCH) PO ×2 (12:13→20:52)
--- NOTE | 2025-04-02 13:19 | NURSING ---
1200-per pt, she was sleeping when therapy rounded and was told they would come back later. she also said her pain was better than this am, 5mg oxycodone given for pain 02/24
[2025-04-02] MEDS: cycloBENZAPRine HCl 10 MG Tablet PO (20:48)
[2025-04-02] MEDS: Atorvastatin Calcium 40 MG Tablet PO (20:48)
[2025-04-02] MEDS: MELATONIN 3 MG TABLET PO (23:01)
[2025-04-03 02:03] VITALS: BP 103/71; PULSE 94; RESP 18; TEMP 36.1; O2SAT 97
[2025-04-03] MEDS: Acetaminophen 325 MG Tablet 650 MG PO ×3 (02:06→21:03)
[2025-04-03] MEDS: oxyCODONE 5 MG Tablet PO ×3 (02:06→21:03)
[2025-04-03 04:38] VITALS: BMI 45.4
[2025-04-03 06:07] LABS: Absolute Lymphocyte Count 1.92 X10^3/uL (0.83-4.51); Absolute Neutrophil Count 6.5 X10^3/uL (2.0-7.7); Basophil# 0.01 X10^3/uL; Basophil% 0.1 % (0-1); Eosinophil# 0.25 X10^3/uL; Eosinophils% 2.5 % (0-5); Hematocrit 30.6 % (37-47); Hemoglobin 9.4 g/dL (12.0-15.0); Lymphocyte # 1.92 X10^3/ul (0.83-4.51); Lymphocyte % 19.6 % (19-41); Mean Corp Hgb Conc 30.7 g/dL (32-36); Mean Corpuscular Hgb 28.3 pg (27.0-32.0); Mean Corpuscular Volume 92.2 fL (81-99); Mean Platelet Vol. 9.2 fl (6.2-12.0); Monocyte# 1.16 X10^3/uL; Monocyte% 11.8 % (0-10); NRBC Flagged by Analyzer 0 % (0-5); Neutrophil # 6.45 X10^3/uL (2.7-7.7); Neutrophil % 65.8 % (47-70); Platelet Count 277 K/mm3 (150-450); RBC Distribution Width CV 14.4 % (11.6-14.6); RBC Distribution Width SD 48.6 fl (35.1-43.9); Red Blood Count 3.32 M/mm3 (4.2-5.4); White Blood Count 9.8 K/mm3 (4.4-11.0)
[2025-04-03 07:07] LABS: Anion Gap 9 (5-15); BUN 10 mg/dL (4-19); BUN/Creat Ratio 14.2 RATIO (10-20); Calcium,Total 8.4 mg/dL (7.6-11.0); Carbon Dioxide 25.4 mmol/L (21.0-32.0); Chloride 104 mmol/L (98-108); EST Glomerular Filtration Rate 95 (>60); Estimated Creatinine Clearance 104.35 ml/min (50-250); Glucose 96 mg/dL (70-99); Potassium 3.7 mmol/L (3.3-5.1); Sodium Level 139 mmol/L (133-145)
[2025-04-03 07:18] VITALS: O2SAT 95
[2025-04-03 08:19] VITALS: BP 125/67; PULSE 89; RESP 16; TEMP 36.7; O2SAT 95
[2025-04-03] MEDS: Aspirin 81 MG TAB.CHEW PO ×2 (08:20→17:18)
[2025-04-03] MEDS: predniSONE 5 MG Tablet PO (08:21)
[2025-04-03] MEDS: Folic Acid 1 MG Tablet PO (08:21)
[2025-04-03] MEDS: APIXABAN 2.5 MG TABLET (WCH) PO ×2 (08:21→21:02)
[2025-04-03] MEDS: Famotidine 20 MG Tablet PO ×2 (08:21→21:02)
[2025-04-03 08:22] VITALS: BP 125/67; PULSE 89
[2025-04-03] MEDS: Senna/Docusate Sodium 1 Tablet 2 TABLET PO ×2 (08:22→21:02)
[2025-04-03] MEDS: Metoprolol(XL)Succ 25 MG Tablet PO (08:22)
[2025-04-03] MEDS: buPROPion (SR) 100 MG TABLET.SA PO ×2 (08:22→21:03)
--- NOTE | 2025-04-03 10:42 | PN_ITS ---
Subjective Subjective Patient seen and examined. Her was by bedside. She had no active complaints. Pain was Well-controlled. Review of systems otherwise negative. She has remained hemodynamically stable. Objective Data Objective Data Vital Signs: Vital Signs Temp Pulse Resp BP Pulse Ox O2 Del Method O2 Flow Rate 98.1 F 89 16 125/67 H 95 Room Air 95 04/03/25 08:19 04/03/25 08:22 04/03/25 08:19 04/03/25 08:22 04/03/25 08:19 04/03/25 08:19 04/02/25 19:52 FiO2 2 03/31/25 16:12 Oxygen Flow Rate (L/min) [4] 2 Oxygen Flow Rate (L/min) [3] 2 Oxygen Flow Rate (L/min) [2] 2 Oxygen Flow Rate (L/min) [1 ( 2 Initial Baseline)] Oxygen Flow Rate (L/min) 95 Oxygen Delivery Method [4] Nasal Cannula Oxygen Delivery Method [3] Nasal Cannula Oxygen Delivery Method [2] Nasal Cannula Oxygen Delivery Method [1 ( Nasal Cannula Initial Baseline)] Oxygen Delivery Method Room Air Weight: 307 lb 12.245 oz Body Mass Index (BMI) 45.4 Intake & Output: Intake and Output for Last 24 Hours 04/01/25 04/02/25 04/03/25 23:59 23:59 23:59 Intake Total 1735 / 1735 573.25 / 573.25 Output Total 1000 / 1350 1450 / 1450 Balance 735 / 385 -876.75 / -876.75 Lab / Micro Data 04/03/25 05:15 04/03/25 05:15 Labs: Laboratory Results - last 24 hr 04/03/25 05:15: WBC 9.8, RBC 3.32 L, Hgb 9.4 L, Hct 30.6 L, MCV 92.2, MCH 28.3, MCHC 30.7 L, RDW Std Deviation 48.6 H, RDW Coeff of Jesica 14.4, Plt Count 277, MPV 9.2, Immature Gran % (Auto) 0.200, Neut % (Auto) 65.8, Lymph % (Auto) 19.6, [place] % (Auto) 11.8 H, Eos % (Auto) 2.5, Baso % (Auto) 0.1, Absolute Neuts (auto) 6.5, Absolute Lymphs (auto) 1.92, Nucleated RBC % 0, Sodium 139, Potassium 3.7, Chloride 104, Carbon Dioxide 25.4, Anion Gap 9, BUN 10, Creatinine 0.70, Estim Creat Clear Calc 104.35, Est GFR (MDRD) Non-Af 95, BUN/Creatinine Ratio 14.2, Glucose 96, Calcium 8.4 Physical Exam Const alert, oriented x3 and no apparent distress Constitutional Narrative: class III obesity General Appearance: cooperative and well developed HEENT normocephalic, head/scalp atraumatic, moist oral mucous membranes, oropharynx normal and gingiva normal Eyes PERRL and EOMs intact bilaterally Neck no lymphadenopathy and supple Lymph Lymphatic: no lymphadenopathy noted and no lymphedema noted Resp normal respiratory effort, normal air movement and clear to auscultation bilaterally Cardio regular rate, regular rhythm, S1 normal heart sound and S2 normal heart sound GI normal to inspection, nondistended, normoactive bowel sounds and soft to palpation Extremity Extremity Narrative: intact dressing over RLE Skin General Skin Exam: no breakdown Wound Narrative: intact dressing over RLE Neuro CN's II-XII intact bilaterally and no focal motor deficits Motor Exam: general weakness Psych thought process normal, cooperative and affect normal Appearance: appropriate Assessment & Plan Assessment/Plan (1) Ankle fracture, bimalleolar, closed: (2) Fall: PLAN: Plan #Right distal tibial and fibular fracture due to mechanical fall * Orthopedic surgery on board. * s/p ORIF by orthopedics. Today is POD 2 * On p.o. Tylenol, p.o. oxycodone and IV morphine as needed for pain. * #Rheumatoid arthritis: On methotrexate injections monthly. Was on folic acid. On low-dose steroids. #Anxiety and depression: Bupropion #Hypertension: On metoprolol. IV hydralazine. #Hyperlipidemia: On statin #GERD: famotidine #Class III obesity: BMI is 43.2. Complicates acute care, expected recovery and prognosis. DVT prophylaxis: * On Eliquis 2.5 mg twice daily. * Per orthopedics to be discharged on 4 weeks of aspirin 81 mg twice daily we will leave discretion for selection of DVT prophylaxis to primary team. Disposition: Awaiting placement in SNF. Charges/Coding Visit Charges Inpatient E&M: 10113 Subs Hosp L2
[2025-04-03 14:25] VITALS: BP 127/47; PULSE 87; RESP 14; TEMP 36.9; O2SAT 97
[2025-04-03] MEDS: cycloBENZAPRine HCl 10 MG Tablet PO (21:02)
[2025-04-03] MEDS: MELATONIN 3 MG TABLET PO (21:02)
[2025-04-03] MEDS: Atorvastatin Calcium 40 MG Tablet PO (21:02)
[2025-04-03] MEDS: 0.9% Saline Lock 10 ML Syringe IV (21:09)
[2025-04-03 21:12] VITALS: BP 144/69; PULSE 95; RESP 20; TEMP 37.1; O2SAT 95
[2025-04-04 05:14] VITALS: BP 119/52; PULSE 93; RESP 18; TEMP 37.1; O2SAT 95
[2025-04-04 05:34] VITALS: BMI 45.1
[2025-04-04 06:17] LABS: Absolute Lymphocyte Count 1.86 X10^3/uL (0.83-4.51); Basophil# 0.01 X10^3/uL; Basophil% 0.1 % (0-1); Eosinophils% 4.3 % (0-5); Hematocrit 29.1 % (37-47); Hemoglobin 9.2 g/dL (12.0-15.0); Lymphocyte # 1.86 X10^3/ul (0.83-4.51); Lymphocyte % 19.9 % (19-41); Mean Corp Hgb Conc 31.6 g/dL (32-36); Mean Corpuscular Hgb 28.8 pg (27.0-32.0); Mean Corpuscular Volume 90.9 fL (81-99); Mean Platelet Vol. 9.3 fl (6.2-12.0); Monocyte# 1.08 X10^3/uL; Monocyte% 11.6 % (0-10); NRBC Flagged by Analyzer 0 % (0-5); Neutrophil # 5.96 X10^3/uL (2.7-7.7); Neutrophil % 63.8 % (47-70); Platelet Count 288 K/mm3 (150-450); RBC Distribution Width CV 14.4 % (11.6-14.6); RBC Distribution Width SD 47.7 fl (35.1-43.9); White Blood Count 9.3 K/mm3 (4.4-11.0)
[2025-04-04 06:53] LABS: Anion Gap 10 (5-15); BUN 9 mg/dL (4-19); BUN/Creat Ratio 14.9 RATIO (10-20); Calcium,Total 8.5 mg/dL (7.6-11.0); Carbon Dioxide 25.5 mmol/L (21.0-32.0); Chloride 105 mmol/L (98-108); Creatinine, Serum 0.61 mg/dL (0.70-1.20); EST Glomerular Filtration Rate 98 (>60); Glucose 122 mg/dL (70-99); Potassium 3.7 mmol/L (3.3-5.1); Sodium Level 140 mmol/L (133-145)
[2025-04-04] MEDS: Acetaminophen 325 MG Tablet 650 MG PO ×3 (07:40→21:12)
[2025-04-04 08:31] VITALS: BP 127/95; PULSE 97; RESP 18; TEMP 36.5; O2SAT 97
[2025-04-04 08:32] VITALS: PULSE 97
[2025-04-04] MEDS: Aspirin 81 MG TAB.CHEW PO ×2 (08:32→17:45)
[2025-04-04] MEDS: Metoprolol(XL)Succ 25 MG Tablet PO (08:32)
[2025-04-04] MEDS: Famotidine 20 MG Tablet PO ×2 (08:33→21:13)
[2025-04-04] MEDS: Folic Acid 1 MG Tablet PO (08:33)
[2025-04-04] MEDS: APIXABAN 2.5 MG TABLET (WCH) PO (08:33)
[2025-04-04] MEDS: predniSONE 5 MG Tablet PO (08:33)
[2025-04-04] MEDS: Senna/Docusate Sodium 1 Tablet 2 TABLET PO ×2 (08:34→21:13)
[2025-04-04] MEDS: buPROPion (SR) 100 MG TABLET.SA PO ×2 (08:34→21:13)
--- NOTE | 2025-04-04 09:58 | CASEMGMT ---
SW met with patient and her daughter. Introduced self and role at [facility]. They decided on [facility]. SW let them know SW will make a referral and let them know if there are any problems. Marguerite HARDWICK
--- NOTE | 2025-04-04 11:39 | CASEMGMT ---
[facility] can take patient once insurance approves. However, patient will not be able to get Cimzia injections while on TCU. SW met with patient and her daughter letting them know TCU can take patient, but she will not be able to get her Cimzia injections while there. They verbalized understanding. SW also let them know patient will be able to wear regular clothes while on TCU. Plan: d/c to [facility] pending insurance approval. Marguerite HARDWICK
[2025-04-04 14:05] VITALS: BP 126/54; PULSE 89; RESP 18; TEMP 36.9; O2SAT 96
--- NOTE | 2025-04-04 15:57 | PN.HOSP_ITS ---
Reason for Visit Reason for Visit: Left ankle pain after mechanical fall Subjective Subjective Patient denies any significant complaints. Pain is well-controlled. Plan is for TCU at discharge once pre-CERT is obtained if patient accepted. Has not had a bowel movement since admission. Is not using a lot of narcotics but not moving around much. We will go ahead and give 1 dose of MiraLAX and continue stool softener she is currently on and then make MiraLAX as needed. Objective Data Objective Data Vital Signs: Vital Signs Temp Pulse Resp BP Pulse Ox O2 Del Method O2 Flow Rate 98.5 F 89 18 126/54 H 96 Room Air 95 04/04/25 14:05 04/04/25 14:05 04/04/25 14:05 04/04/25 14:05 04/04/25 14:05 04/04/25 14:05 04/02/25 19:52 FiO2 2 03/31/25 16:12 Oxygen Flow Rate (L/min) [4] 2 Oxygen Flow Rate (L/min) [3] 2 Oxygen Flow Rate (L/min) [2] 2 Oxygen Flow Rate (L/min) [1 ( 2 Initial Baseline)] Oxygen Flow Rate (L/min) 95 Oxygen Delivery Method [4] Nasal Cannula Oxygen Delivery Method [3] Nasal Cannula Oxygen Delivery Method [2] Nasal Cannula Oxygen Delivery Method [1 ( Nasal Cannula Initial Baseline)] Oxygen Delivery Method Room Air Weight: 138.8 kg Body Mass Index (BMI) 45.1 Intake & Output: Intake and Output for Last 24 Hours 04/02/25 04/03/25 04/04/25 23:59 23:59 23:59 Intake Total 573.25 / 573.25 120 / 120 370 / 370 Output Total 1450 / 1450 1500 / 1500 500 / 500 Balance -876.75 / -876.75 -1380 / -1380 -130 / -130 Lab / Micro Data 04/04/25 05:40 04/04/25 05:40 Labs: Laboratory Results - last 24 hr 04/04/25 05:40: WBC 9.3, RBC 3.20 L, Hgb 9.2 L, Hct 29.1 L, MCV 90.9, MCH 28.8, MCHC 31.6 L, RDW Std Deviation 47.7 H, RDW Coeff of Jesica 14.4, Plt Count 288, MPV 9.3, Immature Gran % (Auto) 0.300, Neut % (Auto) 63.8, Lymph % (Auto) 19.9, [place] % (Auto) 11.6 H, Eos % (Auto) 4.3, Baso % (Auto) 0.1, Absolute Neuts (auto) 6.0, Absolute Lymphs (auto) 1.86, Nucleated RBC % 0, Sodium 140, Potassium 3.7, Chloride 105, Carbon Dioxide 25.5, Anion Gap 10, BUN 9, Creatinine 0.61 L, Estim Creat Clear Calc 104.00, Est GFR (MDRD) Non-Af 98, BUN/Creatinine Ratio 14.9, G lucose 122 H, Calcium 8.5 Physical Exam Const alert, oriented x3, no apparent distress and well nourished; Negative for average body habitus Constitutional Narrative: Morbidly obese, middle-aged, -[place], female, sitting up in bed, daughter at bedside, patient appears comfortable, nontoxic HEENT head/scalp atraumatic Head and Scalp: normocephalic Extremity Extremity Narrative: Right lower extremity with postoperative splint on Neuro oriented x3 and no focal motor deficits Speech: speech normal Psych affect normal Psych Narrative: Very pleasant, eye contact is good Assessment & Plan Assessment/Plan (1) Trimalleolar fracture of right ankle: PLAN: Plan Right ankle trimalleolar fracture status post mechanical fall - Postop day 3 next-continue Tylenol - Not requiring much narcotics - Will be nonweightbearing for 6 weeks - Continue ice - Will need outpatient follow-up in 2 weeks with orthopedic surgery - DVT prophylaxis per orthopedic surgery should be ASA 81 mg p.o. twice daily for 4 weeks postoperatively Acute constipation - No bowel movement since admission - Continue stool softener scheduled - MiraLAX x 1 dose then as needed - Reevaluate tomorrow Chronic anemia secondary to chronic disease - hemoglobin appears to be stable in the 9-10 range - No signs of bleeding - Will continue to follow Rheumatoid arthritis - Patient on chronic methotrexate injections as well as folic acid - Restart methotrexate at discharge - Continue home folic acid - Continue low dose prednisone Essential hypertension/hyperlipidemia - continue home statin - Continue metoprolol - As needed hydralazine for systolic pressure greater than 160 GERD - Continue home famotidine Anxiety/depression - Continue home Wellbutrin Morbid obesity - BMI is 45.2 - Recommend weight loss - Complicates treatment, prognosis, outcomes DVT prophylaxis - Continue apixaban 2.5 mg p.o. twice daily - Continue aspirin 81 mg p.o. twice daily x 4 weeks - Start Lovenox 40 mg SQ twice daily while patient is hospitalized and in rehab CODE STATUS - Full code Charges/Coding Visit Charges Inpatient E&M: 80007 Subs Hosp L1
[2025-04-04] MEDS: Polyethylene Glycol 3350 17 GM PACKET PO (16:28)
[2025-04-04 20:14] VITALS: BP 98/60; PULSE 96; RESP 18; TEMP 36.1; O2SAT 99
[2025-04-04 20:19] VITALS: O2SAT 98
[2025-04-04] MEDS: Atorvastatin Calcium 40 MG Tablet PO (21:13)
[2025-04-04] MEDS: MELATONIN 3 MG TABLET PO (21:13)
[2025-04-04] MEDS: cycloBENZAPRine HCl 10 MG Tablet PO (21:13)
[2025-04-04] MEDS: Enoxaparin 40 MG/0.4 ML Syringe SC (21:25)
[2025-04-05 03:30] VITALS: BP 107/71; PULSE 93; RESP 16; TEMP 36.1; O2SAT 98
[2025-04-05 05:39] VITALS: BMI 45.1
[2025-04-05 08:26] LABS: Absolute Lymphocyte Count 1.57 X10^3/uL (0.83-4.51); Basophil# 0.02 X10^3/uL; Basophil% 0.2 % (0-1); Eosinophil# 0.32 X10^3/uL; Eosinophils% 2.9 % (0-5); Hematocrit 30.3 % (37-47); Hemoglobin 9.4 g/dL (12.0-15.0); Lymphocyte # 1.57 X10^3/ul (0.83-4.51); Lymphocyte % 14.4 % (19-41); Mean Corpuscular Hgb 27.9 pg (27.0-32.0); Mean Corpuscular Volume 89.9 fL (81-99); Mean Platelet Vol. 9.3 fl (6.2-12.0); Monocyte% 9.2 % (0-10); NRBC Flagged by Analyzer 0 % (0-5); Neutrophil # 7.95 X10^3/uL (2.7-7.7); Neutrophil % 72.8 % (47-70); Platelet Count 311 K/mm3 (150-450); RBC Distribution Width CV 14.6 % (11.6-14.6); Red Blood Count 3.37 M/mm3 (4.2-5.4); White Blood Count 10.9 K/mm3 (4.4-11.0)
[2025-04-05] MEDS: Mag Hydrox/Al Hydrox/Simeth 30 ML UDC PO (08:31)
[2025-04-05 08:42] LABS: Anion Gap 10 (5-15); BUN 9 mg/dL (4-19); BUN/Creat Ratio 16.9 RATIO (10-20); Calcium,Total 8.7 mg/dL (7.6-11.0); Carbon Dioxide 23.7 mmol/L (21.0-32.0); Chloride 106 mmol/L (98-108); Creatinine, Serum 0.55 mg/dL (0.70-1.20); EST Glomerular Filtration Rate 101 (>60); Estimated Creatinine Clearance 103.87 ml/min (50-250); Glucose 102 mg/dL (70-99); Potassium 3.5 mmol/L (3.3-5.1); Sodium Level 140 mmol/L (133-145)
[2025-04-05 08:51] VITALS: BP 130/58; PULSE 80; RESP 18; TEMP 36.4; O2SAT 97
[2025-04-05 10:10] VITALS: PULSE 80
[2025-04-05] MEDS: Metoprolol(XL)Succ 25 MG Tablet PO (10:10)
[2025-04-05] MEDS: Famotidine 20 MG Tablet PO (10:10)
[2025-04-05] MEDS: Folic Acid 1 MG Tablet PO (10:10)
[2025-04-05] MEDS: predniSONE 5 MG Tablet PO (10:10)
[2025-04-05] MEDS: Enoxaparin 40 MG/0.4 ML Syringe SC (10:11)
[2025-04-05] MEDS: Acetaminophen 325 MG Tablet 650 MG PO (10:11)
[2025-04-05] MEDS: Senna/Docusate Sodium 1 Tablet 2 TABLET PO (10:11)
[2025-04-05] MEDS: Aspirin 81 MG TAB.CHEW PO (10:11)
[2025-04-05] MEDS: oxyCODONE 5 MG Tablet PO (10:19)
--- NOTE | 2025-04-05 10:48 | CASEMGMT ---
Patient was approved to go to TCU. SW notified physician and patient. Patient declined notifying daughter as her daughter will be in today and she will tell her. Marguerite HARDWICK
[2025-04-05] MEDS: buPROPion (SR) 100 MG TABLET.SA PO (11:50)
--- NOTE | 2025-04-05 13:55 | PCM.TXEXTCAR ---
Diet Diet Order/Speech Therapy: 04/03/25 14:15 Diet: Cardiac - Heart Healthy Food consistency:: Regular Liquid Consistency:: Regular/Thin Routine Orders/Code Status Routine Lab Work: CBC (1 week) and BMP (1 week) Code Status: Full Code DC O2, CPAP, BIPAP needs Home O2 Discharge instructions: No Wound(s) right foot: Wound Type: Surgical Incision Therapies Weight Bearing: Non weight bearing Extremity Affected:: Right Lower (6 weeks) Physical Therapy: Eval and Treat Occupational Therapy: Eval and Treat Problem/Diagnosis (1) Trimalleolar fracture of right ankle: Status: Acute Code(s): S82.851A - Displaced trimalleolar fracture of right lower leg, initial encounter for closed fracture Plan Right ankle trimalleolar fracture status post mechanical fall - Will be nonweightbearing for 6 weeks - Will need outpatient follow-up in 2 weeks with orthopedic surgery - DVT prophylaxis per orthopedic surgery should be ASA 81 mg p.o. twice daily for 4 weeks postoperatively Allergies/Procedures Done in Hospital Allergies No Known Allergies Allergy (Verified 03/31/25 14:56) Procedures: - (CT right lower extremity/ankle x-ray x 3) Type of Care/Length of Stay Estimated LOS: Convalescent Care Less Than 30 days Type of Care Needed: Skilled Rehab Potential: Good Prognosis: Good Additional Orders/Day of Discharge Day of Discharge: 04/05/25 Dietary and Speech Recommendations Dietitian Recommendations/Changes: Cardiac given BMI 45.4 and history of HLD and HTN. Weight loss desirable, PCP referral to out-pt RD for supportive weight loss. Follow Up Care Please Follow Up With: Edwin Silva MD When: 2 weeks Discharge Plan Admission Admit Date/Time: 03/31/25 19:22 Attending Provider: Puja Stewart Primary Care Provider: Ahsan Souza Consulting Providers: Edwin Silva; Evelina Coyle; Precious Russell Instructions Patient Instructions: ED Ankle Fracture Additional Instructions / Restrictions: It is very important for you not to bear any weight on your broken ankle. As we discussed you may see your orthopedist in [place] or if you wish to see an orthopedist locally you may call Dr. Silva's office at [facility] the phone number is above. Discharge Orders/Prescriptions Prescriptions: No Action cyclobenzaprine 10 mg tablet 10 mg PO QHS atorvastatin 40 mg tablet 40 mg PO QHS prednisone 5 mg tablet 5 mg PO DAILY bupropion HCl 100 mg tablet sustained-release 12 hr 100 mg PO BID famotidine 20 mg tablet 20 mg PO BID methotrexate sodium 2.5 mg tablet 20 mg PO QWEEK folic acid 1 mg tablet 1 mg PO DAILY metoprolol succinate 25 mg tablet extended release 24 hr 25 mg PO DAILY Cimzia 400 mg/2 mL (200 mg/mL x 2) syringe kit 400 mg subcut .[id number] Calcium 600 + D(3) 600 mg-5 mcg (200 unit) capsule 1 cap PO DAILY cholecalciferol (vitamin D3) 25 mcg (1,000 unit) capsule 25 mcg PO DAILY melatonin 3 mg capsule 3 mg PO DAILY Referrals / Follow Up: Edwin Silva MD [Med Staff - Active Staff] - As soon as possible (for orthopedics, or see the orthopedist of your choice) Care Physician,No Primary [Non-Staff] - Ahsan Souza MD [Primary Care Provider] -
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
--- NOTE | 2025-04-05 14:37 | CASEMGMT ---
Patient is ready for discharge to [facility]. Plan: d/c to [facility] under skilled level of care. Marguerite HARDWICK
--- NOTE | 2025-04-05 15:02 | PHA.DC_ITS ---
Pharmacy [place] Med Reconciliation Pharmacy Service has performed discharge medication reconciliation for this patient. The patient's discharge medication list was reviewed for discrepancies and discrepancies were resolved. Medications at Discharge Home Medications atorvastatin 40 mg tablet 40 mg PO QHS cholesterol 03/31/25 bupropion HCl 100 mg tablet,12 hr sustained-release 100 mg PO BID 03/31/25 calcium 600 mg (as carbonate)-vitamin D3 5 mcg (200 unit) capsule (Calcium 600 + D(3)) 1 cap PO DAILY 03/31/25 certolizumab pegol 400 mg/2 mL (200 mg/mL x2) subcutaneous syringe kit (Cimzia) 400 mg subcut .[id number] 03/31/25 cholecalciferol (vitamin D3) 25 mcg (1,000 unit) capsule 25 mcg PO DAILY 03/31/25 cyclobenzaprine 10 mg tablet 10 mg PO QHS 03/31/25 famotidine 20 mg tablet 20 mg PO BID 03/31/25 folic acid 1 mg tablet 1 mg PO DAILY 03/31/25 melatonin 3 mg capsule 3 mg PO DAILY 03/31/25 methotrexate sodium 2.5 mg tablet 20 mg PO QWEEK 03/31/25 metoprolol succinate 25 mg tablet,extended release 24 hr 25 mg PO DAILY 03/31/25 prednisone 5 mg tablet 5 mg PO DAILY 03/31/25 acetaminophen 325 mg tablet 650 mg (2 x 325 mg) PO Q4H PRN PRN Fever, pain 1- 08/26 #0 tabs 04/05/25 aspirin 81 mg chewable tablet 81 mg PO BIDCM #0 tabs 04/05/25 enoxaparin 40 mg/0.4 mL subcutaneous syringe 40 mg (0.4 mL) subcut BID #0 mL 04/05/25 oxycodone 5 mg tablet 5 mg PO Q4H PRN PRN MODSEVPAIN 1 day #6 tabs 04/05/25 sennosides 8.6 mg-docusate sodium 50 mg tablet (Stimulant Laxative Plus) 2 tab PO BID #0 tabs 04/05/25
== END 2025-04-05 15:07 | DRG 493 ==
LOC: ED 18:39 → PCU 20:16
PROVIDERS: Specialist; Student in an Organized Health Care Education/Training Program; Admitting Provider Family Medicine; Emergency Provider Emergency Medicine; PCP Internal Medicine; Visit Provider Internal Medicine
PROC: 0QSG04Z Reposition Right Tibia with Internal Fixation Device, Open Approach (ICD-10-PCS; principal; 2025-04-01 16:55)
DX: S82.851A Displaced trimalleolar fracture of right lower leg, initial encounter for closed fracture (principal); Z68.42 Body mass index [BMI] 45.0-49.9, adult; D63.8 Anemia in other chronic diseases classified elsewhere; M06.9 Rheumatoid arthritis, unspecified; I10 Essential (primary) hypertension; F32.A Depression, unspecified; E66.01 Morbid (severe) obesity due to excess calories; E78.5 Hyperlipidemia, unspecified; K21.9 Gastro-esophageal reflux disease without esophagitis; F41.9 Anxiety disorder, unspecified; K59.00 Constipation, unspecified; W03.XXXA Other fall on same level due to collision with another person, initial encounter; Z79.52 Long term (current) use of systemic steroids; R53.81 Other malaise; E66.813 Obesity, class 3; Z82.49 Family history of ischemic heart disease and other diseases of the circulatory system; Z87.891 Personal history of nicotine dependence; Z79.82 Long term (current) use of aspirin
CPT/HCPCS: 29515; 36415; 73610; 73700; 76000; 80048; 80053; 85025; 93005; 94668; 97116; 97162; 97165; 97530; 97535; 99285; C1713; A4216; J2405

== ENCOUNTER 2025-04-05 15:07 | Inpatient (IN) | payer MEDICARE, SELFPAY ==
[2025-04-05 15:16] VITALS: BP 143/97; PULSE 86; RESP 19; TEMP 36.2; O2SAT 99; BMI 43.2
[2025-04-05] MEDS: Aspirin 81 MG TAB.CHEW PO (16:27)
[2025-04-05] MEDS: Methotrexate 2.5 MG Tablet 20 MG PO (16:27)
--- NOTE | 2025-04-05 17:24 | PCM.HP.STD ---
HPI - General General Date of Admission: 04/05/25 Date of Service: 04/05/25 Chief Complaint: Here for rehabilitation. HPI Narrative JOSELITO SO, is a 64 Female who presents with followin03/31/2025 [facility] ED fall. Right ankle injury, fell to ground, right ankle deformed. Recent left total knee replacement at [facility]. X-ray right ankle bimalleolar fracture dislocation. Fracture dislocation reduced, placed in Ortho-glass posterior and stirrup splint 13 stairs at home, unable to go home. 03/31/2025 Admit [facility]. NWB right lower extremity, Dr. Silva consult, PT/OT/CM, NPO right ankle fracture. 04/01/2025 Right ankle pain. Tylenol, Oxycodone, Morphine IV for pain. 04/01/2025 Dr. Silva ORIF right trimalleolar ankle fracture, medial and lateral malleolus, stress exam right ankle under fluoroscopy. 04/02/2025 Fever 99.5, HR 104. Eliquis 2.5mg bid dvt prophylaxis. 04/03/2025 Pain well controlled. Aspirin 81mg bid x 4 weeks dvt prophylaxis per Ortho. Await SNF placement. 04/04/2025 Pain well controlled. Pre-[facility]. Miralax, colace for constipation. NWB RLE x 6 weeks. Aspirin 81mg bid x 4 weeks DVT prophylaxis. Chronic anemia stable. 04/05/2025 Admit to TCU with debility, here for rehabilitation, strengthening, prior to discharge home with . [facility] Medical History (Updated 04/05/25 @ 17:[address] Guillermo Bell MD) Anxiety and depression GERD (gastroesophageal reflux disease) Rheumatoid arthritis Morbid obesity HLD (hyperlipidemia) HTN (hypertension) Home Medications ?Medication ?Instructions ?Recorded ?Last Taken ?Type atorvastatin 40 mg tablet 40 mg PO QHS cholesterol 03/31/25 03/30/25 History bupropion HCl 100 mg tablet,12 hr 100 mg PO BID mood 03/31/25 03/31/25 History sustained-release calcium 600 mg (as 1 cap PO DAILY supplement 03/31/25 03/31/25 History carbonate)-vitamin D3 5 mcg (200 unit) capsule (Calcium 600 + D(3)) certolizumab pegol 400 mg/2 mL 400 mg subcut .[id number] 03/31/25 Unknown History (200 mg/mL x2) subcutaneous syringe kit (Cimzia) cholecalciferol (vitamin D3) 25 25 mcg PO DAILY supplement 03/31/25 03/31/25 History mcg (1,000 unit) capsule cyclobenzaprine 10 mg tablet 10 mg PO QHS muscle relaxer 03/31/25 03/30/25 History famotidine 20 mg tablet 20 mg PO BID reflux 03/31/25 Unknown History folic acid 1 mg tablet 1 mg PO DAILY supplement 03/31/25 03/31/25 History melatonin 3 mg capsule 3 mg PO DAILY sleep 03/31/25 03/30/25 History methotrexate sodium 2.5 mg tablet 20 mg PO QWEEK arthritis 03/31/25 Unknown History metoprolol succinate 25 mg 25 mg PO DAILY BP/pulse 03/31/25 03/31/25 History tablet,extended release 24 hr prednisone 5 mg tablet 5 mg PO DAILY arthritis 03/31/25 Unknown History acetaminophen 325 mg tablet 650 mg (2 x 325 mg) PO Q4H PRN PRN 04/05/25 Unknown Rx Fever, pain 1-08/26 #0 tabs aspirin 81 mg chewable tablet 81 mg PO BIDCM blood thinner #0 04/05/25 Unknown Rx tabs enoxaparin 40 mg/0.4 mL 40 mg (0.4 mL) subcut BID blood 04/05/25 Unknown Rx subcutaneous syringe thinner #0 mL oxycodone 5 mg tablet 5 mg PO Q4H PRN PRN MODSEVPAIN 1 04/05/25 Unknown Rx day #6 tabs sennosides 8.6 mg-docusate sodium 2 tab PO BID stool softener #0 tabs 04/05/25 Unknown Rx 50 mg tablet (Stimulant Laxative Plus) Allergy/AdvReac Type Severity Reaction Status Date / Time No Known Allergies Allergy Verified 03/31/25 14:56 Family History Mother CVA (cerebral vascular accident) Hypertension Father Cancer Surgical History History of left knee replacement Social History household members: spouse Smoking Status: Former smoker alcohol intake: never substance use type: does not use ROS Constitutional Constitutional: Reports weakness; Denies chills, fever(s) or weight gain ENT HEENT: Denies headache(s), nasal congestion or nasal discharge Cardiovascular Cardiovascular: Denies chest pain or palpitations Respiratory/Chest Respiratory/Chest: Denies cough, excessive phlegm production or shortness of breath with exertion Gastrointestinal Gastrointestinal: Denies abdominal pain, nausea or vomiting Genitourinary Genitourinary: Denies dysuria Musculoskeletal Musculoskeletal: Denies joint pain or joint swelling Integumentary Integumentary: Denies rash or wounds Neurologic Neurologic: Denies focal weakness, numbness or tingling Psychiatric Psychiatric: Denies anxiety, auditory hallucinations, depression, homicidal ideation or suicidal ideation Vital Signs Vital Signs Vital Signs: 04/05/25 15:16 04/05/25 15:16 Temperature 97.2 F L Temperature Source Temporal Pulse Rate 86 Pulse Rhythm Regular Pulse Strength Normal (2+) Respiratory Rate 19 H Respiratory Effort Normal Non-Labored Respiratory Depth Normal Respiratory Pattern Normal Blood Pressure 143/97 H Blood Pressure Mean 112 Pulse Ox 99 Oxygen Delivery Method Room Air Room Air Weight Weight: 133 kg Body Mass Index (BMI) 43.2 Physical Exam Const alert General Appearance: cooperative HEENT normocephalic Eyes PERRL and EOMs intact bilaterally Neck supple, no JVD and no carotid bruits Resp normal respiratory effort, normal air movement and clear to auscultation bilaterally Cardio regular rate and regular rhythm GI normal to inspection, nondistended, normoactive bowel sounds, non-tender and non-distended Extremity normal capillary refill Extremity Narrative: Right lower extremity splint, dressed. General Extremity: Negative for edema Skin no rashes or lesions noted General Skin Exam: no breakdown Psych affect normal Appearance: appropriate Assessment & Plan Assessment/Plan (1) Debility: (2) Trimalleolar fracture of right ankle: (3) HLD (hyperlipidemia): (4) Depression: (5) Vitamin D deficiency: (6) Muscle spasm: (7) GERD (gastroesophageal reflux disease): (8) Insomnia: (9) Rheumatoid arthritis: PLAN: Plan 64 year old female with below past medical history hospitalized with right trimalleolar ankle fracture, underwent ORIF 04/01/[address] Silva, admitted to TCU with debility, here for rehabilitation, strengthening, prior to discharge home with . Debility - PT/OT. Pain - Tylenol 1000mg q6 prn pain (1-5), Oxycodone 5mg q4 prn pain (6-10). Bowel - Miralax 17gm daily, senna/colace 2 tablets bid, Magnesium citrate 300mL daily prn. Adult immunization - Administer pneumonia vaccine, covid vaccine, flu vaccine as appropriate. DVT prophylaxis - Aspirin 81mg bid thru 05/02/2025. Hyperlipidemia - Atorvastatin 40mg qhs. Calcium deficiency - Calcium D 1 tablet daily. Vitamin D deficiency - D3 25mcg daily. Muscle spasm - Flexeril 10mg qhs. GERD - Famotidine 20mg bid. Rheumatoid arthritis - MTX 20mg qweek, Folic acid 1mg daily, Prednisone 5mg daily. Insomnia - Melatonin 3mg qhs. Hypertension - Metoprolol succinate 25mg daily. The following psychotropic medication was present on admission: Bupropion 100mg bid. Psychotropic medication therapy is indicated for a diagnosis of: Major depression. Based on my clinical evaluation, continuation of the medication is necessary at this time. Gradual dose reduction plan (select one): ____ GDR will be attempted. Will monitor patient symptoms and behaviors in response to GDR. __x__ GRD contraindicated. Reason contraindicated: stable chronic long-term use.
[2025-04-05] MEDS: Atorvastatin Calcium 40 MG Tablet PO (20:48)
[2025-04-05] MEDS: MELATONIN 3 MG TABLET PO (20:48)
[2025-04-05] MEDS: cycloBENZAPRine HCl 10 MG Tablet PO (20:48)
[2025-04-05] MEDS: Famotidine 20 MG Tablet PO (20:49)
[2025-04-05] MEDS: buPROPion (SR) 100 MG TABLET.SA PO (20:49)
[2025-04-05] MEDS: Acetaminophen 500 MG Tablet 1000 MG PO (20:50)
[2025-04-06] MEDS: oxyCODONE 5 MG Tablet PO ×2 (02:01→11:41)
[2025-04-06 06:01] LABS: Absolute Neutrophil Count 5.6 X10^3/uL (2.0-7.7); Basophil# 0.01 X10^3/uL; Basophil% 0.1 % (0-1); Eosinophil# 0.31 X10^3/uL; Eosinophils% 3.6 % (0-5); Hematocrit 29.7 % (37-47); Hemoglobin 9.2 g/dL (12.0-15.0); Mean Corpuscular Hgb 27.8 pg (27.0-32.0); Mean Corpuscular Volume 89.7 fL (81-99); Mean Platelet Vol. 9.2 fl (6.2-12.0); Monocyte# 0.87 X10^3/uL; Monocyte% 10.2 % (0-10); NRBC Flagged by Analyzer 0 % (0-5); Neutrophil # 5.58 X10^3/uL (2.7-7.7); Neutrophil % 65.5 % (47-70); Platelet Count 317 K/mm3 (150-450); RBC Distribution Width CV 14.6 % (11.6-14.6); RBC Distribution Width SD 47.6 fl (35.1-43.9); Red Blood Count 3.31 M/mm3 (4.2-5.4); White Blood Count 8.5 K/mm3 (4.4-11.0)
[2025-04-06 06:25] LABS: Anion Gap 12 (5-15); BUN 10 mg/dL (4-19); BUN/Creat Ratio 16.3 RATIO (10-20); Calcium,Total 8.8 mg/dL (7.6-11.0); Carbon Dioxide 21.7 mmol/L (21.0-32.0); Chloride 106 mmol/L (98-108); Creatinine, Serum 0.61 mg/dL (0.70-1.20); EST Glomerular Filtration Rate 98 (>60); Estimated Creatinine Clearance 101.47 ml/min (50-250); Glucose 93 mg/dL (70-99); Potassium 3.6 mmol/L (3.3-5.1); Sodium Level 140 mmol/L (133-145)
[2025-04-06 10:04] VITALS: BP 116/49; PULSE 94; RESP 17; TEMP 36.1; O2SAT 97
[2025-04-06] MEDS: Folic Acid 1 MG Tablet PO (10:14)
[2025-04-06] MEDS: predniSONE 5 MG Tablet PO (10:14)
[2025-04-06] MEDS: Aspirin 81 MG TAB.CHEW PO ×2 (10:14→16:25)
[2025-04-06] MEDS: Calcium Carb/Vitamin D 1 TABLET Tablet PO (10:14)
[2025-04-06] MEDS: Famotidine 20 MG Tablet PO ×2 (10:14→21:54)
[2025-04-06 10:15] VITALS: PULSE 94
[2025-04-06] MEDS: Tuberculin,Purif.prot.deriv. 50 TU/ML Vial 0.1 ML ID (10:15)
[2025-04-06] MEDS: Metoprolol(XL)Succ 25 MG Tablet PO (10:15)
[2025-04-06] MEDS: Acetaminophen 500 MG Tablet 1000 MG PO ×2 (10:16→21:53)
[2025-04-06] MEDS: Cholecalciferol (VIT D3) 25 MCG TABLET (1,000 UNITS) PO (10:16)
[2025-04-06] MEDS: buPROPion (SR) 100 MG TABLET.SA PO ×2 (10:16→21:54)
--- NOTE | 2025-04-06 12:24 | NURSING ---
Senior Science Consultant Note; Activity Asset: Michael Torres is independent in her choice of daily activities. She has her smartphone, tv, reads and was given word puzzles. She stated at this time she would like to rest however welcomes the incendiaries supervisor and therapy dog when available. Family will visits and bring her items she may need or want. Staff will encourage social activities, remind her of weekly activities and respect her right to say no.
--- NOTE | 2025-04-06 14:10 | PCM.PN.DRR ---
Documented by User: Stephanie Santillan 04/06/25 14:31 TCU RX Drug Regimen Review Subjective/Objective Subjective/Objective Subjective: TCU Admission. 64 YOF presented to the ER after a fall. Hospitalized with right trimalleolar ankle fracture, underwent ORIF 04/01/[address] Silva. Admitted to TCU with debility for strengthening and rehabilitation. Objective: Allergies No Known Allergies Allergy (Verified 03/31/25 14:56) Current Medications Generic Name Dose Route Start Last Admin Trade Name Freq PRN Reason Stop Dose Admin Acetaminophen 1,000 mg 04/05/25 17:38 04/06/25 10:16 Acetaminophen 500 Mg Tablet PO 1,000 mg Q6H PRN Administration Pain Score 1-5 Aspirin 81 mg 04/05/25 17:00 04/06/25 10:14 Aspirin 81 Mg Tab.Chew PO 05/02/25 23:59 81 mg BIDCM BERNIE Administration Atorvastatin Calcium 40 mg 04/05/25 22:00 04/05/25 20:48 Atorvastatin Calcium 40 Mg Tablet PO 40 mg QHS BERNIE Administration Bupropion HCl 100 mg 04/05/25 22:00 04/06/25 10:16 Bupropion (Sr) 100 Mg Tablet.Sa PO 100 mg BID BERNIE Administration Calcium/Vitamin D 1 tablet 04/06/25 10:00 04/06/25 10:14 Calcium Carb/Vitamin D 1 Tablet Tablet PO 1 tablet DAILY BERNIE Administration Cholecalciferol 25 mcg 04/06/25 10:00 04/06/25 10:16 Cholecalciferol (Vit D3) 25 Mcg Tablet (1,000 Units) PO 25 mcg DAILY BERNIE Administration Cyclobenzaprine HCl 10 mg 04/05/25 22:00 04/05/25 20:48 Cyclobenzaprine Hcl 10 Mg Tablet PO 10 mg QHS BERNIE Administration Famotidine 20 mg 04/05/25 22:00 04/06/25 10:14 Famotidine 20 Mg Tablet PO 20 mg BID BERNIE Administration Folic Acid 1 mg 04/06/25 08:00 04/06/25 10:14 Folic Acid 1 Mg Tablet PO 1 mg BREAKFAST BERNIE Administration Magnesium Citrate 300 ml 04/05/25 17:36 Magnesium Citrate 300 Ml PO DAILY PRN Constipation Melatonin 3 mg 04/05/25 22:00 04/05/25 20:48 Melatonin 3 Mg Tablet PO 3 mg QHS BERNIE Administration Methotrexate 20 mg 04/05/25 15:30 04/05/25 16:27 Methotrexate 2.5 Mg Tablet PO 20 mg Tu@1000 BERNIE Administration Metoprolol Succinate 25 mg 04/06/25 10:00 04/06/25 10:15 Metoprolol(Xl)Succ 25 Mg Tablet PO 25 mg DAILY BERNIE Administration Protocol Oxycodone HCl 5 mg 04/05/25 15:22 04/06/25 11:41 Oxycodone 5 Mg Tablet PO 5 mg Q4H PRN PRN Administration Pain Score 6-10 or Pre PT/OT Polyethylene Glycol 17 gm 04/06/25 10:00 04/06/25 10:14 Polyethylene Glycol 3350 17 Gm Packet PO Not Given DAILY [facility] Prednisone 5 mg 04/06/25 08:00 04/06/25 10:14 Prednisone 5 Mg Tablet PO 5 mg DAILY@0800 BERNIE Administration Senna/Docusate Sodium 2 tablet 04/05/25 22:00 04/06/25 10:14 Senna/Docusate Sodium 1 Tablet PO Not Given BID [facility] Tuberculin PPD 0.1 ml 04/13/25 10:00 Tuberculin,Purif.Prot.Deriv. 50 Tu/Ml Vial ID 04/13/25 10:01 X1 ONE Problem List Rheumatoid arthritis (Acute) Insomnia (Acute) GERD (gastroesophageal reflux disease) (Acute) Muscle spasm (Acute) Vitamin D deficiency (Acute) Depression (Acute) HLD (hyperlipidemia) (Acute) Debility (Acute) Trimalleolar fracture of right ankle (Acute) Vital Signs Temp Pulse Resp BP Pulse Ox O2 Del Method 97 F L 94 17 116/49 L 97 Room Air 04/06/25 10:04 04/06/25 10:15 04/06/25 10:04 04/06/25 10:04 04/06/25 10:04 04/06/25 10:04 Oxygen Delivery Method Room Air Weight: 133 kg Body Mass Index (BMI) 43.2 Sodium 140 mmol/L (133-145) 04/06/25 05:28 Potassium 3.6 mmol/L (3.3-5.1) 04/06/25 05:28 Chloride 106 mmol/L (98-108) 04/06/25 05:28 Carbon Dioxide 21.7 mmol/L (21.0-32.0) 04/06/25 05:28 Anion Gap 12 (5-15) 04/06/25 05:28 BUN 10 mg/dL (4-19) 04/06/25 05:28 Creatinine 0.61 mg/dL (0.70-1.20) L 04/06/25 05:28 Est GFR (MDRD) Non-Af 98 (>60) 04/06/25 05:28 BUN/Creatinine Ratio 16.3 RATIO (10-20) 04/06/25 05:28 Glucose 93 mg/dL (70-99) 04/06/25 05:28 Assessment/Plan: 1. Pain: acetaminophen 1000mg PO Q6H PRN pain 1-5 and oxycodone 5mg PO Q4H PRN pain 6-10. Resident has had 2 doses of acetaminophen for pain of 4 and 2 doses of oxycodone for pain scores of 6/8 for the foot. Please continue to monitor for increased pain, PRN usage, constipation, respiratory depression, LFTs and falls (BEERs). 2. Bowel: Miralax 17gm PO daily, senna/docusate 2T PO BID and magnesium citrate 300mL PO daily PRN constipation. Please continue to monitor for constipation and PRN usage (no PRN doses given). Last documented bowel movement was 04/06/25. 3. DVT prophylaxis: aspirin 81mg PO BID thru 05/02/25. Please continue to monitor for S/S of bleeding/DVT, bruising and hemoglobin (last 9.2g/dL). 4. Muscle spasms: cyclobenzaprine 10mg PO QHS. Please continue to monitor for muscle spasms, confusion, anticholinergics side effects (BEERs) and dementia/delirium (BEERs). 5. Hyperlipidemia: atorvastatin 40mg PO QHS. Please consider ordering a lipid panel as there is no panel in the chart. Thanks. Please continue to monitor LFTs (last 04/01/25) and muscle pain. 6. Rheumatoid arthritis: methotrexate 20mg PO weekly, folic acid 1mg PO daily and prednisone 5mg PO daily. Please continue to monitor for rash (black box warning), LFTs (black box warning), diarrhea, CBC, infection. 7. GERD: famotidine 20mg PO BID. Please continue to monitor for S/S of GERD and renal function. 8. Hypertension: metoprolol succinate 25mg PO daily. Please continue to monitor BP (98-143/80-96) and HR (80-96). 9. Insomnia: melatonin 3mg PO QHS. Please continue to monitor for insomnia and excessive daytime drowsiness. 10. Calcium/vitamin D deficiencies: calcium/vitamin D 1T PO daily and cholecalciferol 25mcg PO daily. Please consider ordering a vitamin D level as there is no level in the chart. Thanks. Please continue to monitor calcium (last 8.8mg/dL). Assessment/Plan for indications treated with psychotropic medications: 1. Major depression: bupropion 100mg PO BID. Please see physician note regarding GDR. Monitor for anxiety, agitation and insomnia, seizure activity, nausea, appetite and body weight, headache, suicidal thoughts or behaviors (Boxed Warning). Monitor blood pressure and HR. BP range since admission = 98-143/54-95; HR range since admission = 80-96. Medication is renally eliminated, monitor renal function periodically. Scr = 0.61mg/dL. Monitor for efficacy including resident symptoms, behaviors and indications of distress. Monitor for tolerability including mental status, cognition, excessive sleepiness, withdrawal or decreased participation in activities and decline in physical functioning. Maximize use of nonpharmacologic/behavioral interventions to facilitate dose reduction or discontinuation as appropriate. Please evaluate the appropriateness of GDR unless contraindicated. If appropriate, GDR should be attempted in 2 separate quarters within the first year of use or admission to TCU. If GDR attempted, monitor resident symptoms/behaviors. Medical chart and medication regimen reviewed. The following medication irregularities or issues were identified: 1. Atorvastatin 40mg PO QHS. Please consider ordering a lipid panel as there is no panel in the chart. Thanks. 2. Calcium/vitamin D 1T PO daily and cholecalciferol 25mcg PO daily. Please consider ordering a vitamin D level as there is no level in the chart. Thanks. Date Date of Note: 04/06/25 Documented by User: Dr. Guillermo Bell MD 04/06/25 17:27 TCU RX Drug Regimen Review Provider Comments Provider responsibility Provider Comments to Recommendations by Pharmacy Agree
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
[2025-04-06] MEDS: cycloBENZAPRine HCl 10 MG Tablet PO (21:54)
[2025-04-06] MEDS: Atorvastatin Calcium 40 MG Tablet PO (21:54)
[2025-04-06] MEDS: MELATONIN 3 MG TABLET PO (21:54)
[2025-04-07 08:29] VITALS: BP 119/57; PULSE 95; RESP 17; TEMP 36.2; O2SAT 100
[2025-04-07] MEDS: Aspirin 81 MG TAB.CHEW PO ×2 (08:34→18:01)
[2025-04-07] MEDS: Folic Acid 1 MG Tablet PO (08:34)
[2025-04-07] MEDS: Senna/Docusate Sodium 1 Tablet 2 TABLET PO ×2 (08:35→22:47)
[2025-04-07] MEDS: Famotidine 20 MG Tablet PO ×2 (08:35→22:47)
[2025-04-07] MEDS: Calcium Carb/Vitamin D 1 TABLET Tablet PO (08:35)
[2025-04-07] MEDS: predniSONE 5 MG Tablet PO (08:35)
[2025-04-07 08:36] VITALS: PULSE 95
[2025-04-07] MEDS: Metoprolol(XL)Succ 25 MG Tablet PO (08:36)
[2025-04-07] MEDS: Cholecalciferol (VIT D3) 25 MCG TABLET (1,000 UNITS) PO (08:36)
[2025-04-07] MEDS: buPROPion (SR) 100 MG TABLET.SA PO ×2 (08:36→22:47)
[2025-04-07] MEDS: Acetaminophen 500 MG Tablet 1000 MG PO ×2 (09:57→22:48)
[2025-04-07 14:51] LABS: Cholesterol 131 mg/dL (<=200); High Density Lipoprotein 37 mg/dL; Low Density Lipoprotein Calc. 71 mg/dL; Triglycerides 117 mg/dL; Very Low Density Lipoprotein 23 mg/dL (5-40); cholesterol:hdl ratio screen 3.54
[2025-04-07 14:54] LABS: Vitamin D,25 Hydroxy 32.4 ng/mL (30-100)
[2025-04-07] MEDS: Atorvastatin Calcium 40 MG Tablet PO (22:48)
[2025-04-07] MEDS: MELATONIN 3 MG TABLET PO (22:49)
[2025-04-07] MEDS: cycloBENZAPRine HCl 10 MG Tablet PO (22:49)
[2025-04-07 23:21] VITALS: PULSE 89; RESP 16; O2SAT 96
[2025-04-08 06:01] LABS: Hematocrit 30.4 % (37-47); Hemoglobin 9.5 g/dL (12.0-15.0)
[2025-04-08] MEDS: oxyCODONE 5 MG Tablet PO (09:36)
[2025-04-08 09:38] VITALS: PULSE 92
[2025-04-08] MEDS: Cholecalciferol (VIT D3) 25 MCG TABLET (1,000 UNITS) PO (09:38)
[2025-04-08] MEDS: buPROPion (SR) 100 MG TABLET.SA PO ×2 (09:38→21:09)
[2025-04-08] MEDS: Calcium Carb/Vitamin D 1 TABLET Tablet PO (09:38)
[2025-04-08] MEDS: Folic Acid 1 MG Tablet PO (09:38)
[2025-04-08] MEDS: Metoprolol(XL)Succ 25 MG Tablet PO (09:38)
[2025-04-08] MEDS: Aspirin 81 MG TAB.CHEW PO ×2 (09:38→17:14)
[2025-04-08] MEDS: Famotidine 20 MG Tablet PO ×2 (09:38→21:10)
[2025-04-08] MEDS: predniSONE 5 MG Tablet PO (09:38)
[2025-04-08] MEDS: Senna/Docusate Sodium 1 Tablet 2 TABLET PO ×2 (09:38→21:09)
[2025-04-08 09:41] VITALS: BP 131/66; PULSE 92; RESP 16; TEMP 35.9; O2SAT 98
[2025-04-08] MEDS: Acetaminophen 500 MG Tablet 1000 MG PO (21:08)
[2025-04-08] MEDS: MELATONIN 3 MG TABLET PO (21:10)
[2025-04-08] MEDS: Atorvastatin Calcium 40 MG Tablet PO (21:10)
[2025-04-08] MEDS: cycloBENZAPRine HCl 10 MG Tablet PO (21:10)
[2025-04-09] MEDS: Aspirin 81 MG TAB.CHEW PO ×2 (08:03→17:43)
[2025-04-09] MEDS: Calcium Carb/Vitamin D 1 TABLET Tablet PO (08:03)
[2025-04-09] MEDS: Acetaminophen 500 MG Tablet 1000 MG PO ×2 (08:03→21:03)
[2025-04-09] MEDS: predniSONE 5 MG Tablet PO (08:03)
[2025-04-09] MEDS: Senna/Docusate Sodium 1 Tablet 2 TABLET PO (08:03)
[2025-04-09] MEDS: Famotidine 20 MG Tablet PO ×2 (08:03→21:03)
[2025-04-09] MEDS: Folic Acid 1 MG Tablet PO (08:03)
[2025-04-09 08:04] VITALS: BP 128/57; PULSE 95
[2025-04-09] MEDS: Metoprolol(XL)Succ 25 MG Tablet PO (08:04)
[2025-04-09] MEDS: buPROPion (SR) 100 MG TABLET.SA PO ×2 (08:04→21:03)
[2025-04-09] MEDS: Cholecalciferol (VIT D3) 25 MCG TABLET (1,000 UNITS) PO (08:04)
[2025-04-09 15:30] VITALS: BP 114/51; PULSE 83; RESP 16; TEMP 36.4; O2SAT 100
[2025-04-09] MEDS: MELATONIN 3 MG TABLET PO (21:03)
[2025-04-09] MEDS: cycloBENZAPRine HCl 10 MG Tablet PO (21:03)
[2025-04-09] MEDS: Atorvastatin Calcium 40 MG Tablet PO (21:03)
[2025-04-09 21:15] VITALS: RESP 17
[2025-04-10] MEDS: Famotidine 20 MG Tablet PO ×2 (08:04→22:18)
[2025-04-10] MEDS: Aspirin 81 MG TAB.CHEW PO ×2 (08:04→16:58)
[2025-04-10] MEDS: Calcium Carb/Vitamin D 1 TABLET Tablet PO (08:04)
[2025-04-10] MEDS: Folic Acid 1 MG Tablet PO (08:04)
[2025-04-10 08:05] VITALS: BP 113/72; PULSE 92
[2025-04-10] MEDS: Metoprolol(XL)Succ 25 MG Tablet PO (08:05)
[2025-04-10] MEDS: buPROPion (SR) 100 MG TABLET.SA PO ×2 (08:05→22:18)
[2025-04-10] MEDS: predniSONE 5 MG Tablet PO (08:05)
[2025-04-10] MEDS: Cholecalciferol (VIT D3) 25 MCG TABLET (1,000 UNITS) PO (08:05)
[2025-04-10 08:10] VITALS: BP 113/72; PULSE 92; RESP 18; O2SAT 99
[2025-04-10 16:00] VITALS: TEMP 36.7
[2025-04-10] MEDS: Acetaminophen 500 MG Tablet 1000 MG PO (22:17)
[2025-04-10] MEDS: Senna/Docusate Sodium 1 Tablet 2 TABLET PO (22:17)
[2025-04-10] MEDS: Atorvastatin Calcium 40 MG Tablet PO (22:18)
[2025-04-10] MEDS: MELATONIN 3 MG TABLET PO (22:18)
[2025-04-10] MEDS: cycloBENZAPRine HCl 10 MG Tablet PO (22:19)
[2025-04-11 08:00] VITALS: BP 123/53; PULSE 89; RESP 16; TEMP 36.3; O2SAT 97
[2025-04-11] MEDS: buPROPion (SR) 100 MG TABLET.SA PO ×2 (08:02→21:26)
[2025-04-11] MEDS: Folic Acid 1 MG Tablet PO (08:02)
[2025-04-11] MEDS: Aspirin 81 MG TAB.CHEW PO ×2 (08:02→17:19)
[2025-04-11] MEDS: Famotidine 20 MG Tablet PO ×2 (08:02→21:26)
[2025-04-11 08:03] VITALS: PULSE 89
[2025-04-11] MEDS: predniSONE 5 MG Tablet PO (08:03)
[2025-04-11] MEDS: Calcium Carb/Vitamin D 1 TABLET Tablet PO (08:03)
[2025-04-11] MEDS: Cholecalciferol (VIT D3) 25 MCG TABLET (1,000 UNITS) PO (08:03)
[2025-04-11] MEDS: Metoprolol(XL)Succ 25 MG Tablet PO (08:03)
[2025-04-11] MEDS: oxyCODONE 5 MG Tablet PO (21:25)
[2025-04-11] MEDS: MELATONIN 3 MG TABLET PO (21:26)
[2025-04-11] MEDS: Senna/Docusate Sodium 1 Tablet 2 TABLET PO (21:26)
[2025-04-11] MEDS: Atorvastatin Calcium 40 MG Tablet PO (21:26)
[2025-04-11] MEDS: cycloBENZAPRine HCl 10 MG Tablet PO (21:26)
[2025-04-11 23:00] VITALS: PULSE 74; RESP 16; O2SAT 98
[2025-04-12] MEDS: Acetaminophen 500 MG Tablet 1000 MG PO ×3 (02:14→22:05)
[2025-04-12 08:15] VITALS: BP 116/47; PULSE 88; RESP 16; TEMP 36.4; O2SAT 97
[2025-04-12] MEDS: Aspirin 81 MG TAB.CHEW PO ×2 (08:17→17:42)
[2025-04-12] MEDS: Folic Acid 1 MG Tablet PO (08:17)
[2025-04-12] MEDS: Methotrexate 2.5 MG Tablet 20 MG PO (08:19)
[2025-04-12] MEDS: predniSONE 5 MG Tablet PO (08:20)
[2025-04-12] MEDS: Famotidine 20 MG Tablet PO ×2 (08:20→22:06)
[2025-04-12] MEDS: Calcium Carb/Vitamin D 1 TABLET Tablet PO (08:20)
[2025-04-12 08:21] VITALS: PULSE 88
[2025-04-12] MEDS: buPROPion (SR) 100 MG TABLET.SA PO ×2 (08:21→22:06)
[2025-04-12] MEDS: Metoprolol(XL)Succ 25 MG Tablet PO (08:21)
[2025-04-12] MEDS: Senna/Docusate Sodium 1 Tablet 2 TABLET PO ×2 (08:21→22:06)
[2025-04-12] MEDS: Cholecalciferol (VIT D3) 25 MCG TABLET (1,000 UNITS) PO (08:21)
--- NOTE | 2025-04-12 09:05 | NURSING ---
Manager Delivery Note; MDS for 04/12/2025 Complete
--- NOTE | 2025-04-12 11:07 | CASEMGMT ---
Social Work SW completed BIMS () and PHQ-2 () for MDS assessment. Callie Cardoso SPACE CONTROL AGENT SOFTWARE ARCHITECT
[2025-04-12 13:06] VITALS: BMI 42.8
[2025-04-12 15:01] VITALS: PULSE 84; O2SAT 98
--- NOTE | 2025-04-12 17:42 | NURSING ---
pt c/o that she dropped a large bottle of her lotion from home on her RT ankle. pt has padded splint to RLE. loosened JOSE RAMON wrap and pt stated it felt much better. educated pt to notify nursing if pain gets worse, may need to remove splint and assess skin. pt verbalized understanding.
[2025-04-12] MEDS: cycloBENZAPRine HCl 10 MG Tablet PO (22:05)
[2025-04-12] MEDS: Atorvastatin Calcium 40 MG Tablet PO (22:06)
[2025-04-12] MEDS: MELATONIN 3 MG TABLET PO (22:06)
[2025-04-13 05:39] LABS: Absolute Lymphocyte Count 1.48 X10^3/uL (0.83-4.51); Absolute Neutrophil Count 4.2 X10^3/uL (2.0-7.7); Basophil# 0.01 X10^3/uL; Basophil% 0.1 % (0-1); Hematocrit 32.4 % (37-47); Lymphocyte # 1.48 X10^3/ul (0.83-4.51); Lymphocyte % 22.2 % (19-41); Mean Corp Hgb Conc 30.9 g/dL (32-36); Mean Corpuscular Hgb 27.9 pg (27.0-32.0); Mean Corpuscular Volume 90.3 fL (81-99); Monocyte# 0.75 X10^3/uL; Monocyte% 11.2 % (0-10); NRBC Flagged by Analyzer 0 % (0-5); Neutrophil # 4.21 X10^3/uL (2.7-7.7); Neutrophil % 63.2 % (47-70); Platelet Count 328 K/mm3 (150-450); RBC Distribution Width CV 14.6 % (11.6-14.6); RBC Distribution Width SD 48.1 fl (35.1-43.9); Red Blood Count 3.59 M/mm3 (4.2-5.4); White Blood Count 6.7 K/mm3 (4.4-11.0)
[2025-04-13 06:26] LABS: Anion Gap 10 (5-15); BUN 12 mg/dL (4-19); BUN/Creat Ratio 17.4 RATIO (10-20); Calcium,Total 8.8 mg/dL (7.6-11.0); Carbon Dioxide 22.2 mmol/L (21.0-32.0); Chloride 107 mmol/L (98-108); EST Glomerular Filtration Rate 95 (>60); Estimated Creatinine Clearance 100.89 ml/min (50-250); Glucose 94 mg/dL (70-99); Potassium 3.7 mmol/L (3.3-5.1); Sodium Level 139 mmol/L (133-145)
[2025-04-13 08:19] VITALS: BP 133/89; PULSE 101; RESP 16; TEMP 36.4; O2SAT 98
[2025-04-13] MEDS: Folic Acid 1 MG Tablet PO (08:20)
[2025-04-13] MEDS: Aspirin 81 MG TAB.CHEW PO ×2 (08:20→17:13)
[2025-04-13] MEDS: predniSONE 5 MG Tablet PO (08:20)
[2025-04-13 08:21] VITALS: PULSE 101
[2025-04-13] MEDS: Senna/Docusate Sodium 1 Tablet 2 TABLET PO (08:21)
[2025-04-13] MEDS: Calcium Carb/Vitamin D 1 TABLET Tablet PO (08:21)
[2025-04-13] MEDS: Metoprolol(XL)Succ 25 MG Tablet PO (08:21)
[2025-04-13] MEDS: Cholecalciferol (VIT D3) 25 MCG TABLET (1,000 UNITS) PO (08:21)
[2025-04-13] MEDS: Famotidine 20 MG Tablet PO ×2 (08:21→22:27)
[2025-04-13] MEDS: buPROPion (SR) 100 MG TABLET.SA PO ×2 (08:21→22:26)
[2025-04-13] MEDS: Tuberculin,Purif.prot.deriv. 50 TU/ML Vial 0.1 ML ID (09:20)
[2025-04-13 10:00] VITALS: PULSE 91; RESP 18; O2SAT 98
--- NOTE | 2025-04-13 13:27 | CASEMGMT ---
Social Work IDT met with patient, and dtr for care plan meeting. Discussed patient's progress in PT/OT/SN. Educated to [facility] insurance with NRD 04/13, EDC 04/20, but continued stay is not guaranteed with each review. Provided pt/family with written communication of insurance process and copay coverage during stay. Pt's plan is to DC home and stay on the second floor where she has access to a bathroom. However, if she is unable to maintain WBS to get to the second floor, she will need to stay on the main floor with a BSC. SW can coordinate at DC. SW also provided family with ramp resources for the entryway. Family denied additional needs. IDT recommending HHC therapy as pt will be homebound. Pt agreed. SW to provide list of options once DC date is set. Pt/family appreciative. SW will continue to follow. Callie Cardoso GEOLOGY TECHNICIAN TEAM LEADER SURGERY
[2025-04-13] MEDS: Acetaminophen 500 MG Tablet 1000 MG PO ×2 (14:39→22:26)
[2025-04-13] MEDS: Atorvastatin Calcium 40 MG Tablet PO (22:26)
[2025-04-13] MEDS: MELATONIN 3 MG TABLET PO (22:26)
[2025-04-13] MEDS: cycloBENZAPRine HCl 10 MG Tablet PO (22:28)
[2025-04-14] MEDS: oxyCODONE 5 MG Tablet PO (04:08)
[2025-04-14 09:20] VITALS: BP 116/77; PULSE 118; RESP 17; TEMP 36.5; O2SAT 99
[2025-04-14] MEDS: Aspirin 81 MG TAB.CHEW PO ×2 (09:20→16:55)
[2025-04-14] MEDS: predniSONE 5 MG Tablet PO (09:20)
[2025-04-14] MEDS: Folic Acid 1 MG Tablet PO (09:20)
[2025-04-14] MEDS: Calcium Carb/Vitamin D 1 TABLET Tablet PO (09:21)
[2025-04-14] MEDS: Famotidine 20 MG Tablet PO ×2 (09:21→22:28)
[2025-04-14 09:22] VITALS: PULSE 105
[2025-04-14] MEDS: Metoprolol(XL)Succ 25 MG Tablet PO (09:22)
[2025-04-14] MEDS: Cholecalciferol (VIT D3) 25 MCG TABLET (1,000 UNITS) PO (09:22)
[2025-04-14] MEDS: Acetaminophen 500 MG Tablet 1000 MG PO ×2 (09:23→22:29)
[2025-04-14] MEDS: buPROPion (SR) 100 MG TABLET.SA PO ×2 (09:23→22:28)
[2025-04-14 10:00] VITALS: PULSE 90; RESP 19; O2SAT 97
[2025-04-14] MEDS: Atorvastatin Calcium 40 MG Tablet PO (22:27)
[2025-04-14] MEDS: MELATONIN 3 MG TABLET PO (22:27)
[2025-04-14] MEDS: cycloBENZAPRine HCl 10 MG Tablet PO (22:27)
[2025-04-14] MEDS: Senna/Docusate Sodium 1 Tablet 2 TABLET PO (22:28)
[2025-04-15] MEDS: Aspirin 81 MG TAB.CHEW PO ×2 (08:23→17:27)
[2025-04-15] MEDS: buPROPion (SR) 100 MG TABLET.SA PO ×2 (08:23→20:23)
[2025-04-15 08:24] VITALS: BP 106/73; PULSE 91
[2025-04-15] MEDS: Metoprolol(XL)Succ 25 MG Tablet PO (08:24)
[2025-04-15] MEDS: Folic Acid 1 MG Tablet PO (08:24)
[2025-04-15] MEDS: Cholecalciferol (VIT D3) 25 MCG TABLET (1,000 UNITS) PO (08:24)
[2025-04-15] MEDS: Calcium Carb/Vitamin D 1 TABLET Tablet PO (08:24)
[2025-04-15] MEDS: Famotidine 20 MG Tablet PO ×2 (08:24→20:24)
[2025-04-15] MEDS: predniSONE 5 MG Tablet PO (08:24)
[2025-04-15] MEDS: Acetaminophen 500 MG Tablet 1000 MG PO (08:28)
[2025-04-15 08:30] VITALS: BP 106/73; PULSE 91; RESP 18; O2SAT 99
[2025-04-15 13:00] VITALS: TEMP 36.7
--- NOTE | 2025-04-15 16:13 | NURSING ---
Pt had appt with Dr. Silva this shift. Pt received walking boot to be worn at all times except with showering. Pt to remain NWB on RLE.
[2025-04-15] MEDS: MELATONIN 3 MG TABLET PO (20:24)
[2025-04-15] MEDS: cycloBENZAPRine HCl 10 MG Tablet PO (20:24)
[2025-04-15] MEDS: Atorvastatin Calcium 40 MG Tablet PO (20:24)
[2025-04-15] MEDS: Senna/Docusate Sodium 1 Tablet 2 TABLET PO (20:24)
[2025-04-15] MEDS: oxyCODONE 5 MG Tablet PO (20:29)
[2025-04-16 08:29] VITALS: BP 124/61; PULSE 90; RESP 17; TEMP 36.1; O2SAT 98
[2025-04-16] MEDS: Calcium Carb/Vitamin D 1 TABLET Tablet PO (08:37)
[2025-04-16] MEDS: Folic Acid 1 MG Tablet PO (08:37)
[2025-04-16] MEDS: predniSONE 5 MG Tablet PO (08:37)
[2025-04-16] MEDS: Famotidine 20 MG Tablet PO ×2 (08:37→22:27)
[2025-04-16] MEDS: Aspirin 81 MG TAB.CHEW PO ×2 (08:37→17:01)
[2025-04-16] MEDS: Senna/Docusate Sodium 1 Tablet 2 TABLET PO ×2 (08:37→22:27)
[2025-04-16 08:38] VITALS: PULSE 90
[2025-04-16] MEDS: Metoprolol(XL)Succ 25 MG Tablet PO (08:38)
[2025-04-16] MEDS: Cholecalciferol (VIT D3) 25 MCG TABLET (1,000 UNITS) PO (08:38)
[2025-04-16] MEDS: buPROPion (SR) 100 MG TABLET.SA PO ×2 (08:38→22:27)
[2025-04-16 10:00] VITALS: PULSE 90; RESP 18; O2SAT 97
[2025-04-16] MEDS: Atorvastatin Calcium 40 MG Tablet PO (22:26)
[2025-04-16] MEDS: cycloBENZAPRine HCl 10 MG Tablet PO (22:26)
[2025-04-16] MEDS: MELATONIN 3 MG TABLET PO (22:27)
[2025-04-16] MEDS: Acetaminophen 500 MG Tablet 1000 MG PO (22:30)
[2025-04-17 09:02] VITALS: BP 122/47; PULSE 96; RESP 17; TEMP 36.1; O2SAT 95
[2025-04-17 09:05] VITALS: PULSE 96
[2025-04-17] MEDS: Famotidine 20 MG Tablet PO ×2 (09:05→21:44)
[2025-04-17] MEDS: Folic Acid 1 MG Tablet PO (09:05)
[2025-04-17] MEDS: Calcium Carb/Vitamin D 1 TABLET Tablet PO (09:05)
[2025-04-17] MEDS: Senna/Docusate Sodium 1 Tablet 2 TABLET PO ×2 (09:05→21:44)
[2025-04-17] MEDS: predniSONE 5 MG Tablet PO (09:05)
[2025-04-17] MEDS: Metoprolol(XL)Succ 25 MG Tablet PO (09:05)
[2025-04-17] MEDS: Aspirin 81 MG TAB.CHEW PO ×2 (09:05→16:20)
[2025-04-17] MEDS: buPROPion (SR) 100 MG TABLET.SA PO ×2 (09:06→21:46)
[2025-04-17] MEDS: Cholecalciferol (VIT D3) 25 MCG TABLET (1,000 UNITS) PO (09:06)
[2025-04-17] MEDS: Acetaminophen 500 MG Tablet 1000 MG PO ×2 (16:22→22:33)
[2025-04-17] MEDS: cycloBENZAPRine HCl 10 MG Tablet PO (21:43)
[2025-04-17] MEDS: Atorvastatin Calcium 40 MG Tablet PO (21:44)
[2025-04-17] MEDS: MELATONIN 3 MG TABLET PO (21:45)
[2025-04-18 09:59] VITALS: BP 115/57; PULSE 89; RESP 17; TEMP 36.1; O2SAT 98
[2025-04-18 10:00] VITALS: PULSE 62; RESP 16; O2SAT 96
[2025-04-18] MEDS: predniSONE 5 MG Tablet PO (10:02)
[2025-04-18] MEDS: Aspirin 81 MG TAB.CHEW PO ×2 (10:02→17:33)
[2025-04-18] MEDS: Folic Acid 1 MG Tablet PO (10:02)
[2025-04-18 10:03] VITALS: PULSE 89
[2025-04-18] MEDS: Senna/Docusate Sodium 1 Tablet 2 TABLET PO ×2 (10:03→22:50)
[2025-04-18] MEDS: buPROPion (SR) 100 MG TABLET.SA PO ×2 (10:03→22:50)
[2025-04-18] MEDS: Calcium Carb/Vitamin D 1 TABLET Tablet PO (10:03)
[2025-04-18] MEDS: Metoprolol(XL)Succ 25 MG Tablet PO (10:03)
[2025-04-18] MEDS: Cholecalciferol (VIT D3) 25 MCG TABLET (1,000 UNITS) PO (10:03)
[2025-04-18] MEDS: Famotidine 20 MG Tablet PO ×2 (10:03→22:50)
--- NOTE | 2025-04-18 10:36 | MDS.RN ---
Information for the MDS was obtained from review of the clinical record, interview of resident, staff, and direct observation of resident?s care.
[2025-04-18] MEDS: Acetaminophen 500 MG Tablet 1000 MG PO ×2 (10:57→22:51)
--- NOTE | 2025-04-18 12:13 | CASEMGMT ---
Addendum entered by Callie Cardoso 04/18/25 15:48: Pt spoke with this worker and requested BSC. SW sent referral to [facility] via [facility]. Original Note: Social Work Insurance issued LCD 04/20, DC 04/21 SW spoke with pt at bedside. Notified of DC date, as anticipated. SW provided NOMNC to pt and educated to appeal rights. Pt verbalized understanding and denied appeal. Pt is agreeable to DC. SW inquired about BSC. Pt stated she wanted to speak with her dtr first, and will notify this worker. SW confirmed HHC at [place]. Pt stated Dr. Silva already referred to [facility] from appt Friday. SW to follow up. Pt will have family transport at [place]. - REVA phoned referral to [facility] for PT/OT Plan: DC home with and daughter 04/21, [facility] PT/OT Callie Cardoso, CECILIA GARZONW
--- NOTE | 2025-04-18 13:43 | NURSING ---
Offered covid vaccine, VIS provided. Resident declines.
--- NOTE | 2025-04-18 16:55 | PCM.DC.SUM ---
Providers Date of Admission: 04/05/25 Primary Care Physician: Dr. Ahsan Souza MD Reason For Visit: FALL RIGHT ANKLE FRACTURE Diagnosis Discharge Diagnosis (1) Debility: Status: Acute Code(s): R53.81 - Other malaise (2) Trimalleolar fracture of right ankle: Status: Inactive Code(s): S82.851A - Displaced trimalleolar fracture of right lower leg, initial encounter for closed fracture (3) HLD (hyperlipidemia): Status: Acute Code(s): E78.5 - Hyperlipidemia, unspecified (4) Depression: Status: Acute Code(s): F32.A - Depression, unspecified (5) Vitamin D deficiency: Status: Acute Code(s): E55.9 - Vitamin D deficiency, unspecified (6) Muscle spasm: Status: Acute Code(s): M62.838 - Other muscle spasm (7) GERD (gastroesophageal reflux disease): Status: Acute Code(s): K21.9 - Gastro-esophageal reflux disease without esophagitis (8) Insomnia: Status: Acute Code(s): G47.00 - Insomnia, unspecified (9) Rheumatoid arthritis: Status: Acute Code(s): M06.9 - Rheumatoid arthritis, unspecified Plan 64 year old female with below past medical history hospitalized with right trimalleolar ankle fracture, underwent ORIF 04/01/[address] Silva, admitted to TCU with debility, here for rehabilitation, strengthening, prior to discharge home with . Debility - PT/OT. Pain - Tylenol 1000mg q6 prn pain (1-5), Oxycodone 5mg q4 prn pain (6-10). Bowel - Miralax 17gm daily, senna/colace 2 tablets bid, Magnesium citrate 300mL daily prn. Adult immunization - Administer pneumonia vaccine, covid vaccine, flu vaccine as appropriate. DVT prophylaxis - Aspirin 81mg bid thru 05/02/2025. Hyperlipidemia - Atorvastatin 40mg qhs. Calcium deficiency - Calcium D 1 tablet daily. Vitamin D deficiency - D3 25mcg daily. Muscle spasm - Flexeril 10mg qhs. GERD - Famotidine 20mg bid. Rheumatoid arthritis - MTX 20mg qweek, Folic acid 1mg daily, Prednisone 5mg daily. Insomnia - Melatonin 3mg qhs. Hypertension - Metoprolol succinate 25mg daily. The following psychotropic medication was present on admission: Bupropion 100mg bid. Psychotropic medication therapy is indicated for a diagnosis of: Major depression. Based on my clinical evaluation, continuation of the medication is necessary at this time. Gradual dose reduction plan (select one): ____ GDR will be attempted. Will monitor patient symptoms and behaviors in response to GDR. __x__ GRD contraindicated. Reason contraindicated: stable chronic mcfp use. Medications at Discharge Home Medications atorvastatin 40 mg tablet 40 mg PO QHS cholesterol 03/31/25 bupropion HCl 100 mg tablet,12 hr sustained-release 100 mg PO BID mood 03/31/25 calcium 600 mg (as carbonate)-vitamin D3 5 mcg (200 unit) capsule (Calcium 600 + D(3)) 1 cap PO DAILY supplement 03/31/25 certolizumab pegol 400 mg/2 mL (200 mg/mL x2) subcutaneous syringe kit (Cimzia) 400 mg subcut .[id number] 03/31/25 cholecalciferol (vitamin D3) 25 mcg (1,000 unit) capsule 25 mcg PO DAILY supplement 03/31/25 cyclobenzaprine 10 mg tablet 10 mg PO QHS muscle relaxer 03/31/25 famotidine 20 mg tablet 20 mg PO BID reflux 03/31/25 folic acid 1 mg tablet 1 mg PO DAILY supplement 03/31/25 melatonin 3 mg capsule 3 mg PO DAILY sleep 03/31/25 methotrexate sodium 2.5 mg tablet 20 mg PO QWEEK arthritis 03/31/25 metoprolol succinate 25 mg tablet,extended release 24 hr 25 mg PO DAILY BP/pulse 03/31/25 prednisone 5 mg tablet 5 mg PO DAILY arthritis 03/31/25 aspirin 81 mg chewable tablet 81 mg PO BIDCM blood thinner #0 tabs 04/05/25 acetaminophen 500 mg tablet 1,000 mg (2 x 500 mg) PO Q6H PRN Pain Score 1-5 #0 tabs 04/18/25 sennosides 8.6 mg-docusate sodium 50 mg tablet (Stimulant Laxative Plus) 2 tab PO BID 30 days #120 tabs 04/18/25 Hospital Course Operations - (See below.) Procedures None Summary of Care Provided Minutes Spent on Discharge: 35 Hospital Course: 64 year old female with below past medical history hospitalized with right trimalleolar ankle fracture, underwent ORIF 04/01/[address] Silva, admitted to TCU with debility, here for rehabilitation, strengthening, prior to discharge home with . Discharge home with and daughter 04/21/2025, [facility] PT/OT, 3-in-1 commode. 3-in-1 commode: Patient is confined to one level of the home environment and there is no toilet on that level. Physical Exam Const alert General Appearance: cooperative HEENT normocephalic Eyes PERRL and EOMs intact bilaterally Neck supple, no JVD and no carotid bruits Resp normal respiratory effort, normal air movement and clear to auscultation bilaterally Cardio regular rate and regular rhythm GI normal to inspection, nondistended, normoactive bowel sounds, non-tender and non-distended Extremity normal capillary refill Extremity Narrative: Right lower extremity splint, dressed. General Extremity: Negative for edema Skin no rashes or lesions noted General Skin Exam: no breakdown Psych affect normal Appearance: appropriate Weight / BMI Weight Weight: 131.678 kg Body Mass Index (BMI) 42.8 ABG / Lab / Microbiology Data 04/13/25 05:26 04/13/25 05:26 D/C Instructions Discharge Diet: No restrictions Discharge Activity: Return to Normal Activity and May Shower Weight Bearing Status: No weight bearing (Right lower extremity.) Call your doctor if you observe: Fever of 101 or Higher, Inability to urinate, Inability to have a bowel movement, Shortness of breath, Dizziness, Fainting spells, Swelling in the ankles, Chest pain and Uncontrolled pain DC O2, CPAP, BIPAP Needs Home O2 Discharge instructions: No Additional Instructions: Discharge home with and daughter 04/21/2025, [facility] PT/OT, 3-in-1 commode. 3-in-1 commode: Patient is confined to one level of the home environment and there is no toilet on that level. Please Follow Up With: Dr. Silva When: As scheduled. Meaningful Use Info Meaningful Use Meaningful Use Diagnoses (Choose all that apply): None applicable Ischemic Stroke Statin Dosing Therapy Reference: STATIN DOSE THERAPY REFERENCE: * Patients > 75 years receive moderate or high dose statin therapy. * Patients 75 years or YOUNGER should receive HIGH intensity statin dose unless contraindicated. You will be required to document reason for non-treatment if statin daily dose does not meet guidelines. HIGH DOSE STATIN THERAPY DAILY Atorvastatin > than or = to 40 mg Rosuvastatin > than or = to 20 mg Amlodipine + Atorvastatin > than or = to 2.5/40 mg Ezetimibe + Simvastatin 10/80 mg Simvastatin 80mg Discharge Plan Admission Admit Date/Time: 04/05/25 15:07 Primary Reason for Your Visit: Debility. Attending Provider: Guillermo Bell Chi Primary Care Provider: Ahsan Souza Instructions Additional Instructions / Restrictions: Discharge home with and daughter 04/21/2025, [facility] PT/OT, 3-in-1 commode. 3-in-1 commode: Patient is confined to one level of the home environment and there is no toilet on that level. Discharge Orders/Prescriptions Prescriptions: New acetaminophen 500 mg Tablet 1,000 mg PO Q6H PRN (Reason: Pain Score 1-5) Qty: 0 0RF sennosides-docusate sodium [Stimulant Laxative Plus] 8.6-50 mg Tablet 2 tab PO BID 30 Days Qty: 120 0RF Continued cyclobenzaprine 10 mg tablet 10 mg PO QHS atorvastatin 40 mg tablet 40 mg PO QHS prednisone 5 mg tablet 5 mg PO DAILY bupropion HCl 100 mg tablet sustained-release 12 hr 100 mg PO BID famotidine 20 mg tablet 20 mg PO BID methotrexate sodium 2.5 mg tablet 20 mg PO QWEEK folic acid 1 mg tablet 1 mg PO DAILY metoprolol succinate 25 mg tablet extended release 24 hr 25 mg PO DAILY Cimzia 400 mg/2 mL (200 mg/mL x 2) syringe kit 400 mg subcut .[id number] calcium carbonate-vitamin D3 [Calcium 600 + D(3)] 600 mg-5 mcg (200 unit) capsule 1 cap PO DAILY cholecalciferol (vitamin D3) 25 mcg (1,000 unit) capsule 25 mcg PO DAILY melatonin 3 mg capsule 3 mg PO DAILY aspirin 81 mg Tablet,Chewable 81 mg PO BIDCM Qty: 0 0RF Rx Instructions: Utilize for 4 weeks per orthopedic surgery recommendations for DVT prophylaxis Discontinued oxycodone 5 mg Tablet 5 mg PO Q4H PRN PRN (Reason: MODSEVPAIN) 1 Days Qty: 6 0RF enoxaparin 40 mg/0.4 mL Syringe 40 mg subcut BID Qty: 0 0RF Rx Instructions: Would use this in addition to aspirin for DVT prophylaxis until mobility improves sennosides-docusate sodium [Stimulant Laxative Plus] 8.6-50 mg Tablet 2 tab PO BID Qty: 0 0RF acetaminophen 325 mg Tablet 650 mg PO Q4H PRN PRN (Reason: Fever, pain 1-08/26) Qty: 0 0RF Referrals / Follow Up: Ahsan Souza MD [Primary Care Provider] - Disposition Disposition (needs filled in before D/C Order can be placed): Home Health Service
[2025-04-18] MEDS: cycloBENZAPRine HCl 10 MG Tablet PO (22:49)
[2025-04-18] MEDS: Atorvastatin Calcium 40 MG Tablet PO (22:49)
[2025-04-18] MEDS: MELATONIN 3 MG TABLET PO (22:50)
[2025-04-19 09:14] VITALS: BP 119/61; PULSE 89; RESP 17; TEMP 36.5; O2SAT 100
[2025-04-19] MEDS: Aspirin 81 MG TAB.CHEW PO ×2 (09:16→17:12)
[2025-04-19] MEDS: Folic Acid 1 MG Tablet PO (09:16)
[2025-04-19] MEDS: predniSONE 5 MG Tablet PO (09:17)
[2025-04-19] MEDS: Senna/Docusate Sodium 1 Tablet 2 TABLET PO ×2 (09:18→22:23)
[2025-04-19] MEDS: Methotrexate 2.5 MG Tablet 20 MG PO (09:18)
[2025-04-19 09:19] VITALS: PULSE 89
[2025-04-19] MEDS: Famotidine 20 MG Tablet PO ×2 (09:19→22:22)
[2025-04-19] MEDS: Calcium Carb/Vitamin D 1 TABLET Tablet PO (09:19)
[2025-04-19] MEDS: Cholecalciferol (VIT D3) 25 MCG TABLET (1,000 UNITS) PO (09:19)
[2025-04-19] MEDS: Metoprolol(XL)Succ 25 MG Tablet PO (09:19)
[2025-04-19] MEDS: buPROPion (SR) 100 MG TABLET.SA PO ×2 (09:19→22:22)
[2025-04-19] MEDS: Acetaminophen 500 MG Tablet 1000 MG PO ×2 (09:20→22:21)
[2025-04-19 13:07] VITALS: PULSE 84; RESP 17; O2SAT 97
[2025-04-19 15:00] VITALS: BMI 43.2
[2025-04-19] MEDS: MELATONIN 3 MG TABLET PO (22:22)
[2025-04-19] MEDS: cycloBENZAPRine HCl 10 MG Tablet PO (22:22)
[2025-04-19] MEDS: Atorvastatin Calcium 40 MG Tablet PO (22:22)
[2025-04-20 06:16] LABS: Absolute Neutrophil Count 3.7 X10^3/uL (2.0-7.7); Basophil# 0.02 X10^3/uL; Basophil% 0.3 % (0-1); Eosinophil# 0.19 X10^3/uL; Eosinophils% 2.9 % (0-5); Hemoglobin 10.2 g/dL (12.0-15.0); Lymphocyte % 29.1 % (19-41); Mean Corp Hgb Conc 30.9 g/dL (32-36); Mean Corpuscular Hgb 27.9 pg (27.0-32.0); Mean Corpuscular Volume 90.2 fL (81-99); Mean Platelet Vol. 8.8 fl (6.2-12.0); Monocyte# 0.69 X10^3/uL; Monocyte% 10.6 % (0-10); NRBC Flagged by Analyzer 0 % (0-5); Neutrophil # 3.72 X10^3/uL (2.7-7.7); Neutrophil % 56.8 % (47-70); Platelet Count 335 K/mm3 (150-450); RBC Distribution Width CV 14.7 % (11.6-14.6); RBC Distribution Width SD 48.4 fl (35.1-43.9); Red Blood Count 3.66 M/mm3 (4.2-5.4); White Blood Count 6.5 K/mm3 (4.4-11.0)
[2025-04-20 06:26] LABS: Anion Gap 10 (5-15); BUN 12 mg/dL (4-19); BUN/Creat Ratio 16.3 RATIO (10-20); Calcium,Total 8.9 mg/dL (7.6-11.0); Carbon Dioxide 22.2 mmol/L (21.0-32.0); Chloride 109 mmol/L (98-108); Creatinine, Serum 0.75 mg/dL (0.70-1.20); EST Glomerular Filtration Rate 87 (>60); Estimated Creatinine Clearance 101.23 ml/min (50-250); Glucose 91 mg/dL (70-99); Potassium 3.8 mmol/L (3.3-5.1); Sodium Level 141 mmol/L (133-145)
[2025-04-20 09:18] VITALS: BP 124/71; PULSE 101
[2025-04-20] MEDS: buPROPion (SR) 100 MG TABLET.SA PO ×2 (09:18→22:02)
[2025-04-20] MEDS: Aspirin 81 MG TAB.CHEW PO ×2 (09:18→18:31)
[2025-04-20] MEDS: Folic Acid 1 MG Tablet PO (09:18)
[2025-04-20] MEDS: Metoprolol(XL)Succ 25 MG Tablet PO (09:18)
[2025-04-20] MEDS: Calcium Carb/Vitamin D 1 TABLET Tablet PO (09:18)
[2025-04-20] MEDS: Acetaminophen 500 MG Tablet 1000 MG PO ×2 (09:18→22:01)
[2025-04-20] MEDS: Famotidine 20 MG Tablet PO ×2 (09:18→22:02)
[2025-04-20] MEDS: Cholecalciferol (VIT D3) 25 MCG TABLET (1,000 UNITS) PO (09:18)
[2025-04-20] MEDS: predniSONE 5 MG Tablet PO (09:19)
[2025-04-20] MEDS: Senna/Docusate Sodium 1 Tablet 2 TABLET PO ×2 (09:19→22:02)
[2025-04-20 09:23] VITALS: BP 124/71; PULSE 101; RESP 16; TEMP 36.9
--- NOTE | 2025-04-20 15:52 | CASEMGMT ---
BIMS () and PHQ2 (0) interviews completed on this date for MDS assessment. SABRINA Chaudhary
[2025-04-20 22:00] VITALS: PULSE 84; O2SAT 97
[2025-04-20] MEDS: MELATONIN 3 MG TABLET PO (22:02)
[2025-04-20] MEDS: Atorvastatin Calcium 40 MG Tablet PO (22:02)
[2025-04-20] MEDS: cycloBENZAPRine HCl 10 MG Tablet PO (22:02)
[2025-04-21 06:15] VITALS: PULSE 83; O2SAT 99
[2025-04-21] MEDS: buPROPion (SR) 100 MG TABLET.SA PO (09:40)
[2025-04-21] MEDS: Cholecalciferol (VIT D3) 25 MCG TABLET (1,000 UNITS) PO (09:40)
[2025-04-21] MEDS: predniSONE 5 MG Tablet PO (09:40)
[2025-04-21] MEDS: Senna/Docusate Sodium 1 Tablet 2 TABLET PO (09:40)
[2025-04-21] MEDS: Calcium Carb/Vitamin D 1 TABLET Tablet PO (09:40)
[2025-04-21] MEDS: Folic Acid 1 MG Tablet PO (09:40)
[2025-04-21 09:41] VITALS: BP 110/60; PULSE 77
[2025-04-21] MEDS: Aspirin 81 MG TAB.CHEW PO (09:41)
[2025-04-21] MEDS: Famotidine 20 MG Tablet PO (09:41)
[2025-04-21] MEDS: Metoprolol(XL)Succ 25 MG Tablet PO (09:41)
[2025-04-21 10:00] VITALS: BP 110/60; PULSE 77; RESP 16; TEMP 36.2; O2SAT 97
== END 2025-04-21 10:20 | disposition home health service (06) | DRG 560 ==
PROVIDERS: Admitting Provider Family Medicine Geriatric Medicine; PCP Internal Medicine; Referring Provider Family Medicine Geriatric Medicine; Visit Provider Family Medicine Geriatric Medicine
DX: S82.851D Displaced trimalleolar fracture of right lower leg, subsequent encounter for closed fracture with routine healing (principal); Z68.41 Body mass index [BMI] 40.0-44.9, adult; E55.9 Vitamin D deficiency, unspecified; M06.9 Rheumatoid arthritis, unspecified; I10 Essential (primary) hypertension; F32.9 Major depressive disorder, single episode, unspecified; E66.01 Morbid (severe) obesity due to excess calories; M62.838 Other muscle spasm; E78.5 Hyperlipidemia, unspecified; K21.9 Gastro-esophageal reflux disease without esophagitis; W19.XXXD Unspecified fall, subsequent encounter; Z87.891 Personal history of nicotine dependence; G47.00 Insomnia, unspecified; Z79.01 Long term (current) use of anticoagulants; Z79.82 Long term (current) use of aspirin; Z79.899 Other long term (current) drug therapy
CPT/HCPCS: 36415; 80048; 80061; 82306; 85014; 85018; 85025; 97110; 97116; 97162; 97166; 97530; 97535; 97802; J8610